=== PATIENT | female | born 2000 | race Caucasian/White ===

== ENCOUNTER → 2020-04-28 07:50 | Outpatient (BNVA) | payer BC, SELFPAY | PROVIDERS: Family Provider Family Medicine; Visit Provider Nurse Practitioner | DX: F33.2 Major depressive disorder, recurrent severe without psychotic features (principal); F41.1 Generalized anxiety disorder; F43.12 Post-traumatic stress disorder, chronic | CPT/HCPCS: 99214 ==

== ENCOUNTER → 2020-07-05 09:06 | Outpatient (BNVA) | payer BC, SELFPAY | PROVIDERS: Family Provider Family Medicine; Visit Provider Nurse Practitioner | DX: F41.1 Generalized anxiety disorder (principal); F33.2 Major depressive disorder, recurrent severe without psychotic features | CPT/HCPCS: 99213 ==

== ENCOUNTER 2021-09-16 15:58 | Inpatient (IN) | payer SELFPAY ==
[2021-09-16 16:10] VITALS: BP 97/63; PULSE 101; RESP 17; TEMP 36.3; O2SAT 100; BMI 22.1
--- NOTE | 2021-09-16 16:34 | ECG_ITS ---
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 Measurements Intervals [place] Rate: 101 P: 62 FL: 145 QRS: 43 QRSD: 100 T: 49 QT: 353 QTc: 458 Interpretive Statements SINUS TACHYCARDIA INCOMPLETE RIGHT BUNDLE BRANCH BLOCK Compared to ECG 12/23/2018 03:19:36 Sinus rhythm no longer present Sinus arrhythmia no longer present Electronically Signed On 09-17-2021 13:14:09 [employer] by Viktoriya Garzon M.D. [email or web address] Entertainmentholmes county joel pomerene memorial [id number]
--- NOTE | 2021-09-16 16:45 | ED_ITS ---
Documented by User: Eddie Tarango MD 09/16/21 18:01 HPI - Overdose General: Chief Complaint: Overdose Stated Complaint: OVERDOSE Time Seen by Provider: 09/16/21 16:36 History of Present Illness: HPI Narrative: 21-year-old female presents due to suicidal ideation. States that she was feeling sad and depressed about multiple factors including the recent passing of her family member. States that she took 10 tablets of 100 mg of Seroquel and attempt to hurt herself. Denies any desire to hurt anyone else. This occurred approximately 2-1/2 hours ago. Otherwise denies any pain or other focal symptoms. Poison control contacted and indicated this time if lab work is unremarkable she may be admitted to psychiatry. Review of Systems Narrative: - CONSTITUTIONAL: Denies weight loss, fever and chills. - HEENT: Denies changes in vision and hearing. - RESPIRATORY: Denies SOB and cough. - CV: Denies palpitations and CP. - GI: Denies abdominal pain, nausea, vomiting and diarrhea. - : Denies dysuria and urinary frequency. - MSK: Denies myalgia and joint pain. - SKIN: Denies rash and pruritus. - NEUROLOGICAL: Denies headache, weakness, numbness and syncope. - PSYCHIATRIC: As above [facility] ED PFSH: Medical History (Updated 09/16/21 @ 18:57 by Shmuel Lancaster DO) Cannabis dependence, uncomplicated Generalized anxiety disorder Major depressive disorder, recurrent severe without psychotic features Physical Exam Narrative: EXAM NARRATIVE: - GENERAL: Alert and oriented x 3. No acute distress. Well-nourished. - EYES: EOMI. Anicteric. - HENT: Atraumatic, no C-spine tenderness. Moist mucous membranes. No scleral icterus. No cervical lymphadenopathy. - LUNGS: Clear to auscultation bilaterally. No accessory muscle use. Equal lung sounds bilaterally. No respiratory distress. - CARDIOVASCULAR: Regular rate and rhythm. No murmur. No JVD. - ABDOMEN: Soft, non-tender and non-distended. Negative CVA tenderness bilaterally, no rebound or guarding, negative Castillo sign. No palpable masses. - EXTREMITIES: No edema. Non-tender. - SKIN: No rashes or lesions. Warm. - NEUROLOGIC: No meningismus or focal neurological deficits. CN II-XII grossly intact. - PSYCHIATRIC: Suicidal Course Vital Signs: Vital signs: Vital Signs Temperature 97.4 F L 09/16/21 16:10 Pulse Rate 102 H 09/16/21 18:10 Respiratory Rate 20 H 09/16/21 18:10 Blood Pressure 111/74 09/16/21 18:10 Pulse Oximetry 98 09/16/21 18:10 MDM - Overdose MDM Narrative: Medical decision making narrative: 21-year-old female presents with suicidal ideation after intentional overdose of Seroquel. She is hemodynamically stable afebrile and nontoxic-appearing. Lab work so far unremarkable. No sign of other toxidrome. Patient signed out to Dr. Lancaster. Lab Data: Labs: Lab Results 09/16/21 09/16/21 09/16/21 16:25 16:25 16:58 WBC 7.5 10^3/uL 10^3/ uL (4.0-10.0) RBC 4.16 10^6/uL 10^6 /uL (4.1-5.3) Hgb 13.3 g/dL g/dL (11.5-15.3) Hct 39.0 % % (37.0-47.0) MCV 93.8 fl fl (81-99) MCH 32.0 pg pg (28.0-34.0) MCHC 34.1 g/dL g/dL (30.0-36.0) RDW 12.4 % % (12.1-15.1) Plt Count 233 10^3/cmm 10^3 /cmm (130-400) MPV 10.1 fL fL (7.4-10.4) Neut % (Auto) 76.3 % % Lymph % (Auto) 16.6 % % Steele % (Auto) 5.7 % % Eos % (Auto) 0.8 % % Baso % (Auto) 0.5 % % Neut # (Auto) 5.73 10^3/uL 10^3 /uL (1.8-7.7) Lymph # (Auto) 1.3 10^3/uL 10^3/ uL (0.8-4.8) Steele # (Auto) 0.4 10^3/uL 10^3/ uL (0.2-0.9) Eos # (Auto) 0.1 10^3/uL 10^3/ uL (0.0-0.8) Baso # (Auto) 0.0 10^3/uL 10^3/ uL (0.0-0.1) Nucleated RBC % (a uto) 0 % % Nucleated RBCs # 0.0 /100WBC /100W BC Sodium 139 mmol/L mmol/L (136-145) Potassium 3.9 mmol/L mmol/L (3.5-5.1) Chloride 104 mmol/L mmol/L (98-107) Carbon Dioxide 22 mmol/L mmol/L (22-29) Anion Gap 16.9 (5-19) BUN 7 mg/dL mg/dL (6-20) Creatinine 0.4 mg/dL L mg/dL (0.5-0.9) GFR Calculation 201.5 mL/min H mL /min (90-130) Glucose 97 mg/dL mg/dL (65-115) Calculated Osmolal ity 286 mOsm/kg mOsm/ kg (285-295) Calcium 8.8 mg/dL mg/dL (8.5-10.5) Magnesium 2.0 mg/dL mg/dL (1.7-2.3) Total Bilirubin 0.5 mg/dL mg/dL (0.15-1.2) AST 16 U/L U/L (0-32) ALT 11 U/L U/L (0-33) Alkaline Phosphata se 68 IU/L IU/L (35-105) Total Protein 6.5 g/dL L g/dL (6.6-8.7) Albumin 4.0 g/dL g/dL (3.5-5.2) Globulin 2.5 g/dL g/dL (1.3-4.6) TSH 1.77 uIU/mL uIU/m L (0.27-4.20) HCG, Qual Negative (Negative) Urine Color Urine Appearance Urine pH Ur Specific Gravit y Urine Protein Urine Glucose (UA) Urine Ketones Urine Blood Urine Nitrate Urine Bilirubin Urine Urobilinogen Ur Leukocyte Melany ase Salicylates < 0.3 mg/dL L mg/ dL (3-10) Urine Opiates Scre en Acetaminophen < 5.0 ug/mL L ug/ mL (10-30) Ur Barbiturates Sc reen Ur Phencyclidine S crn Ur Amphetamines Sc reen U Benzodiazepines Scrn Urine Cocaine Scre en U Marijuana (THC) Screen Ethyl Alcohol < 10 mg/dL mg/dL (0-10) 09/16/21 09/16/21 16:58 16:58 WBC RBC Hgb Hct MCV MCH MCHC RDW Plt Count MPV Neut % (Auto) Lymph % (Auto) Steele % (Auto) Eos % (Auto) Baso % (Auto) Neut # (Auto) Lymph # (Auto) Steele # (Auto) Eos # (Auto) Baso # (Auto) Nucleated RBC % (a uto) Nucleated RBCs # Sodium Potassium Chloride Carbon Dioxide Anion Gap BUN Creatinine GFR Calculation Glucose Calculated Osmolal ity Calcium Magnesium Total Bilirubin AST ALT Alkaline Phosphata se Total Protein Albumin Globulin TSH HCG, Qual Urine Color Yellow (Yellow) Urine Appearance Clear (CLEAR) Urine pH 7 (5-7) Ur Specific Gravit y 1.005 (1.005-1.030) Urine Protein Neg (Negative) Urine Glucose (UA) Norm (Normal) Urine Ketones Negative (Negative) Urine Blood Neg (Negative) Urine Nitrate Negative (Negative) Urine Bilirubin Neg (Negative) Urine Urobilinogen Norm mg/dL mg/dL (Negative) Ur Leukocyte Melany ase Negative (Negative) Salicylates Urine Opiates Scre en Negative ng/mL ng /mL (Negative) Acetaminophen Ur Barbiturates Sc reen Negative ng/mL ng /mL (Negative) Ur Phencyclidine S crn Negative ng/mL ng /mL (Negative) Ur Amphetamines Sc reen Negative ng/mL ng /mL (Negative) U Benzodiazepines Scrn Negative ng/mL ng /mL (Negative) Urine Cocaine Scre en Negative ng/mL ng /mL (Negative) U Marijuana (THC) Screen Positive ng/mL H ng/mL (Negative) Ethyl Alcohol Discharge Plan Discharge Patient Disposition: Admitted As Inpatient Clinical Impression: Drug overdose Qualifiers: Encounter type: initial encounter Injury intent: intentional self-harm Qualified Code(s): T50.902A - Poisoning by unspecified drugs, medicaments and biological substances, intentional self-harm, initial encounter Condition: Stable Coding Level of Care Code ED Signals Intelligence Analysis Manager for Chg Fwd Documented by User: Shmuel Lancaster DO 09/16/21 19:55 HPI - Overdose General: Chief Complaint: Overdose Stated Complaint: OVERDOSE Time Seen by Provider: 09/16/21 16:36 [facility] ED PFSH: Medical History (Updated 09/16/21 @ 18:57 by Shmuel Lancaster DO) Cannabis dependence, uncomplicated Generalized anxiety disorder Major depressive disorder, recurrent severe without psychotic features Course Consultations: Consultation #1: Ruddy Time: 18:56 Vital Signs: Vital signs: Vital Signs Temperature 97.4 F L 09/16/21 16:10 Pulse Rate 102 H 09/16/21 18:10 Respiratory Rate 20 H 09/16/21 18:10 Blood Pressure 111/74 09/16/21 18:10 Pulse Oximetry 98 09/16/21 18:10 MDM - Overdose MDM Narrative: Medical decision making narrative: 21-year-old female checked out to me by Dr. Mackenzie at shift change. This young lady to 1 g of Seroquel approximately 1 PM this afternoon. She is awake, alert, and talking. Her heart rate is 90. Blood pressure has 118/64. Her labs are normal. She does Pap positive for marijuana. Spoke with psychiatry, they are willing to take in the NPU. Lab Data: Labs: Lab Results 09/16/21 09/16/21 09/16/21 16:25 16:25 16:58 WBC 7.5 10^3/uL 10^3/ uL (4.0-10.0) RBC 4.16 10^6/uL 10^6 /uL (4.1-5.3) Hgb 13.3 g/dL g/dL (11.5-15.3) Hct 39.0 % % (37.0-47.0) MCV 93.8 fl fl (81-99) MCH 32.0 pg pg (28.0-34.0) MCHC 34.1 g/dL g/dL (30.0-36.0) RDW 12.4 % % (12.1-15.1) Plt Count 233 10^3/cmm 10^3 /cmm (130-400) MPV 10.1 fL fL (7.4-10.4) Neut % (Auto) 76.3 % % Lymph % (Auto) 16.6 % % Steele % (Auto) 5.7 % % Eos % (Auto) 0.8 % % Baso % (Auto) 0.5 % % Neut # (Auto) 5.73 10^3/uL 10^3 /uL (1.8-7.7) Lymph # (Auto) 1.3 10^3/uL 10^3/ uL (0.8-4.8) Steele # (Auto) 0.4 10^3/uL 10^3/ uL (0.2-0.9) Eos # (Auto) 0.1 10^3/uL 10^3/ uL (0.0-0.8) Baso # (Auto) 0.0 10^3/uL 10^3/ uL (0.0-0.1) Nucleated RBC % (a uto) 0 % % Nucleated RBCs # 0.0 /100WBC /100W BC Sodium 139 mmol/L mmol/L (136-145) Potassium 3.9 mmol/L mmol/L (3.5-5.1) Chloride 104 mmol/L mmol/L (98-107) Carbon Dioxide 22 mmol/L mmol/L (22-29) Anion Gap 16.9 (5-19) BUN 7 mg/dL mg/dL (6-20) Creatinine 0.4 mg/dL L mg/dL (0.5-0.9) GFR Calculation 201.5 mL/min H mL /min (90-130) Glucose 97 mg/dL mg/dL (65-115) Calculated Osmolal ity 286 mOsm/kg mOsm/ kg (285-295) Calcium 8.8 mg/dL mg/dL (8.5-10.5) Magnesium 2.0 mg/dL mg/dL (1.7-2.3) Total Bilirubin 0.5 mg/dL mg/dL (0.15-1.2) AST 16 U/L U/L (0-32) ALT 11 U/L U/L (0-33) Alkaline Phosphata se 68 IU/L IU/L (35-105) Total Protein 6.5 g/dL L g/dL (6.6-8.7) Albumin 4.0 g/dL g/dL (3.5-5.2) Globulin 2.5 g/dL g/dL (1.3-4.6) TSH 1.77 uIU/mL uIU/m L (0.27-4.20) HCG, Qual Negative (Negative) Urine Color Urine Appearance Urine pH Ur Specific Gravit y Urine Protein Urine Glucose (UA) Urine Ketones Urine Blood Urine Nitrate Urine Bilirubin Urine Urobilinogen Ur Leukocyte Melany ase Salicylates < 0.3 mg/dL L mg/ dL (3-10) Urine Opiates Scre en Acetaminophen < 5.0 ug/mL L ug/ mL (10-30) Ur Barbiturates Sc reen Ur Phencyclidine S crn Ur Amphetamines Sc reen U Benzodiazepines Scrn Urine Cocaine Scre en U Marijuana (THC) Screen Ethyl Alcohol < 10 mg/dL mg/dL (0-10) 09/16/21 09/16/21 16:58 16:58 WBC RBC Hgb Hct MCV MCH MCHC RDW Plt Count MPV Neut % (Auto) Lymph % (Auto) Steele % (Auto) Eos % (Auto) Baso % (Auto) Neut # (Auto) Lymph # (Auto) Steele # (Auto) Eos # (Auto) Baso # (Auto) Nucleated RBC % (a uto) Nucleated RBCs # Sodium Potassium Chloride Carbon Dioxide Anion Gap BUN Creatinine GFR Calculation Glucose Calculated Osmolal ity Calcium Magnesium Total Bilirubin AST ALT Alkaline Phosphata se Total Protein Albumin Globulin TSH HCG, Qual Urine Color Yellow (Yellow) Urine Appearance Clear (CLEAR) Urine pH 7 (5-7) Ur Specific Gravit y 1.005 (1.005-1.030) Urine Protein Neg (Negative) Urine Glucose (UA) Norm (Normal) Urine Ketones Negative (Negative) Urine Blood Neg (Negative) Urine Nitrate Negative (Negative) Urine Bilirubin Neg (Negative) Urine Urobilinogen Norm mg/dL mg/dL (Negative) Ur Leukocyte Melany ase Negative (Negative) Salicylates Urine Opiates Scre en Negative ng/mL ng /mL (Negative) Acetaminophen Ur Barbiturates Sc reen Negative ng/mL ng /mL (Negative) Ur Phencyclidine S crn Negative ng/mL ng /mL (Negative) Ur Amphetamines Sc reen Negative ng/mL ng /mL (Negative) U Benzodiazepines Scrn Negative ng/mL ng /mL (Negative) Urine Cocaine Scre en Negative ng/mL ng /mL (Negative) U Marijuana (THC) Screen Positive ng/mL H ng/mL (Negative) Ethyl Alcohol Discharge Plan Discharge Patient Disposition: Admitted As Inpatient Clinical Impression: Drug overdose Qualifiers: Encounter type: initial encounter Injury intent: intentional self-harm Qualified Code(s): T50.902A - Poisoning by unspecified drugs, medicaments and biological substances, intentional self-harm, initial encounter Condition: Stable Coding Level of Care Code ED Signals Intelligence Analysis Manager for Chava Li
[2021-09-16 17:06] LABS: Basophils % 0.5 %; Eosinophils # 0.1 10^3/uL (0.0-0.8); Eosinophils % 0.8 %; Hemoglobin 13.3 g/dL (11.5-15.3); Lymphocytes # 1.3 10^3/uL (0.8-4.8); Lymphocytes % 16.6 %; Mean Corpuscular HGB Conc 34.1 g/dL (30.0-36.0); Mean Corpuscular Volume 93.8 fl (81-99); Mean Platelet Volume 10.1 fL (7.4-10.4); Monocytes # 0.4 10^3/uL (0.2-0.9); Monocytes % 5.7 %; Neutrophils # 5.73 10^3/uL (1.8-7.7); Neutrophils % 76.3 %; Nucleated Red Blood Cells % 0 %; Platelet Count 233 10^3/cmm (130-400); Red Blood Count 4.16 10^6/uL (4.1-5.3); Red Cell Distribution Width 12.4 % (12.1-15.1); White Blood Count 7.5 10^3/uL (4.0-10.0)
[2021-09-16 17:25] LABS: Alanine Aminotransferase 11 U/L (0-33); Alkaline Phosphatase 68 IU/L (35-105); Blood Urea Nitrogen 7 mg/dL (6-20); Calcium 8.8 mg/dL (8.5-10.5); Carbon Dioxide 22 mmol/L (22-29); Chloride 104 mmol/L (98-107); Globulin 2.5 g/dL (1.3-4.6); Glomerular Filtration Rate 201.5 mL/min (90-130); Glucose 97 mg/dL (65-115); Osmolality Calculated 286 mOsm/kg (285-295); Sodium 139 mmol/L (136-145); Thyroid Stimulating Hormone 1.77 uIU/mL (0.27-4.20); Total Bilirubin 0.5 mg/dL (0.15-1.2); Total Protein 6.5 g/dL (6.6-8.7)
[2021-09-16 17:32] LABS: Acetaminophen < 5.0 ug/mL (10-30); Alcohol Level < 10 mg/dL (0-10); Salicylate < 0.3 mg/dL (3-10)
[2021-09-16 17:34] LABS: Anion Gap 16.9 (5-19); Aspartate Amino Transferase 16 U/L (0-32); Potassium 3.9 mmol/L (3.5-5.1)
--- NOTE | 2021-09-16 17:49 | PC.NURSE ---
at bedside assumed care of pt.
--- NOTE | 2021-09-16 17:51 | PC.NURSE ---
pt set up in bed hr increased to 141bpm in a sinus rhythym and bp at 83/[address] lambert he verbalized understanding vo for 1 l of ns bolus.
[2021-09-16] MEDS: sodium chloride 0.9% 1,000 ML 999 ML IV (17:59)
--- NOTE | 2021-09-16 18:00 | PC.NURSE ---
pt is on continuous spo2, nibp, and cm.
[2021-09-16 18:10] VITALS: BP 111/74; PULSE 102; RESP 20; O2SAT 98
[2021-09-16 18:31] LABS: HCG Qualitative Urine. Negative (Negative)
[2021-09-16 18:34] LABS: Add Urine Microscopic? NO; Charge for UA Resulting for Rev
[2021-09-16 18:36] LABS: Bilirubin Urine Neg (Negative); Blood Urine Neg (Negative); Glucose Urine UA Norm (Normal); Ketones Urine Negative (Negative); Leukocyte Esterase Urine Negative (Negative); Nitrate Urine Negative (Negative); Protein Urine Neg (Negative); Specific Gravity, Urine 1.005 (1.005-1.030); Urine Appearance Clear (CLEAR); Urine Color Yellow (Yellow); Urobilinogen Urine Norm (Negative); pH Urine 7 (5-7)
[2021-09-16 18:39] LABS: Amphetamines Screen Urine Negative (Negative); Barbiturates Screen Urine Negative (Negative); Benzodiazepines Screen Urine Negative (Negative); Cocaine Screen Urine Negative (Negative); Opiate Screen Urine Negative (Negative); PCP Screen Urine Negative (Negative); THC Screen Urine Positive (Negative)
--- NOTE | 2021-09-16 19:00 | PC.NURSE ---
report given to kay burr assumed care.
[2021-09-16] MEDS: sodium chloride 0.9% 500 ML 999 ML IV (21:12)
[2021-09-16 21:43] VITALS: BP 112/78; PULSE 68; RESP 14; O2SAT 96
[2021-09-16 22:06] VITALS: BP 99/50; PULSE 110; RESP 20; TEMP 37.2; O2SAT 99
--- NOTE | 2021-09-17 00:54 | PC.NURSE ---
Admission 21-year-old female presents due to suicidal ideation. States that she was feeling sad and depressed about multiple factors including the recent passing of her family member. States that she took 10 tablets of 100 mg of Seroquel and attempt to hurt herself. Denies any desire to hurt anyone else. This occurred approximately 2-1/2 hours ago. Otherwise denies any pain or other focal symptoms. Upon arrival to NPU denies that this was a SA. States that she just wanted to sleep. Endorses increased depression since mother committed suicide 11 months ago. Has outpatient services at [facility] but states she has not been going recently but does still take her medications. Patient completed intake and went to bed. Has been resting with eyes closed with no signs of distress noted.
[2021-09-17 06:00] VITALS: BP 92/58; PULSE 83; RESP 14; TEMP 36.8; O2SAT 98; BMI 21.9
[2021-09-17] MEDS: duloxetine 60 mg Capsule 120 MG PO (09:02)
[2021-09-17] MEDS: nicotine 21 mg Patch 1 PATCH TRANSDERMA (12:19)
[2021-09-17] MEDS: nicotine 2 mg Gum BUCCAL ×4 (13:07→20:33)
--- NOTE | 2021-09-17 13:24 | PC.NURSE ---
PER GERMÁN FROM DR. DE LA VEGA PATIENT IS ALLOWED TO HAVE A GABRIEL PATCH AND GABRIEL GUM.
[2021-09-17 14:00] VITALS: BP 112/80; PULSE 91; RESP 16; TEMP 36.6; O2SAT 99
[2021-09-17] MEDS: hyDROXYzine 25 mg Capsule 50 MG PO ×2 (14:39→20:29)
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
[2021-09-17] MEDS: OLANZapine 5 mg ODT PO (17:34)
[2021-09-17 20:01] VITALS: BP 92/60; PULSE 137; RESP 15; TEMP 37.1; O2SAT 100
[2021-09-18 06:00] VITALS: BP 116/75; PULSE 66; RESP 15; TEMP 36.6; O2SAT 100
[2021-09-18] MEDS: nicotine 2 mg Gum BUCCAL ×3 (09:07→17:32)
[2021-09-18] MEDS: ARIPiprazole 10 mg Tablet 5 MG PO (09:07)
[2021-09-18] MEDS: duloxetine 60 mg Capsule 120 MG PO (09:08)
[2021-09-18] MEDS: hyDROXYzine 25 mg Capsule 50 MG PO ×2 (10:15→16:52)
--- NOTE | 2021-09-18 10:16 | PC.NURSE ---
Addendum entered by Rosario Bacon LPN 09/18/21 11:45: prn med effective no further c/o anxiety currently Original Note: PRN VISTARIL 50 MG GIVEN PO PER PT C/O STATED ANXIETY. PT SAID I'VE BEEN FEELING THIS WAY SINCE LAST NIGHT WILL CONT TO MONITOR
[2021-09-18] MEDS: nicotine 21 mg Patch 1 PATCH TRANSDERMA (10:35)
--- NOTE | 2021-09-18 11:56 | PC.NURSE ---
called [facility] pharmacy in [place], [place] to clarify home med Effexor, they said pt hasn't picked up since February 2021, last script was for Effexor 150 mg daily & 75 mg daily, only for 30 day supply. They did check to see if meds were transferred elsewhere, they said no meds had been transferred.
--- NOTE | 2021-09-18 12:26 | NPU.GN ---
[facility] Topic:Emotions General Mood of Group: Patient refused group, unknown reason.
[2021-09-18 14:00] VITALS: BP 116/75; PULSE 66; RESP 15; TEMP 36.6; O2SAT 100
--- NOTE | 2021-09-18 14:10 | P.NPUPN_ITS ---
Subjective NPU Subjective: Interval history: Patient presents today reporting that she really feels anxious and afraid about her ability to maintain her sobriety. She reports that a lot of her depression and even suicidal thoughts are surrounding how hard it is for her to maintain her sobriety from opiates. She reports that she almost cannot remember the 2 years that she was actively in her addiction and that her last use was 2 weeks ago but she feels like she spends every day biting her nails trying to avoid a relapse. We discussed Suboxone and agonist therapies and she reports that her current economics without Medicaid makes that and possible option. She reports she has been going to [facility] but she has not been sharing that this is a primary challenge in her life. We got clarity that she is on the Cymbalta and not the Effexor as she had been thinking and she is currently tolerating the Abilify. She reports that she feels alone in the struggle. Mental Status Exam MSE Comments: This is a well-nourished, well-developed, white female, with purple hair in hospital scrubs, with adequate grooming and eye contact. No abnormal movements, except for psychomotor retardation. Cooperative with exam in moderate distress. Speech was normal rate and volume. Mood described as depressed and anxious and afraid; affect congruent and tearful. Thought process, organized. Thought content: patient denied any suicidal or homicidal ideation, there were no delusions reported or noted, patient denied any auditory or visual hallucinations. Attention, concentration, and memory appear intact but none were formally tested. He is alert and oriented times three. Insight and judgment appear fair. Impulse control is limited. Vitals/I&O/Wt Last Vital Signs Temp 97.9 F 09/18/21 06:00 Pulse 66 09/18/21 06:00 Resp 15 09/18/21 06:00 BP 116/75 09/18/21 06:00 Pulse Ox 100 09/18/21 06:00 Weight last 48 hrs Weight 54.431 kg Weight 56.699 kg Data NPU : 09/16/21 16:25 09/16/21 16:25 A&P Additional A&P Information (1) Drug overdose: (2) Cannabis dependence, uncomplicated: (3) Generalized anxiety disorder: (4) Major depressive disorder, recurrent severe without psychotic features: (5) Opioid dependence: (6) Bereavement: Additional A&P Information This is a 21-year-old, white female, with a long history of mental health and addiction issues, who presents with positive UDS for cannabis only, and endorsing significant depression with suicidality. 1. Continue current medication. 2. Encourage individual, group, and milieu therapy. 3. Continue q-15 minute checks for safety. 4. Recommend sober living treatment at the highest level of care to which the patient is willing to commit. 5. Explore getting connected with Medicaid or seeing if there are any funds available out there for her to get into a program for her addiction. Involuntary Hold Information 96 Hour Hold: 96 Hour Involuntary Admission: Yes 96 Hour Hold Ending Date: 09/22/21 96 Hour Hold Ending Time: 12:01 Attestations NPU Medical Necessity Statement*: Inpatient hospitalization is medically necessary and the clinically appropriate intervention, at this time. We will monitor medications and make changes as indicated.Likely length of stay is 2-4 days. Coding Level of Care Code Acute Condenser Cleaner for Chava Li
[2021-09-18] MEDS: BuSPIRONE 10 mg Tablet 15 MG PO ×2 (14:34→20:08)
[2021-09-18] MEDS: trazodone 50 mg Tablet PO (20:10)
[2021-09-18 20:17] VITALS: BP 110/72; PULSE 94; RESP 16; TEMP 36.9; O2SAT 96
[2021-09-19 06:00] VITALS: BP 95/49; PULSE 67; RESP 14; TEMP 37.1; O2SAT 99
--- NOTE | 2021-09-19 06:46 | PC.NURSE ---
Patient up at start of shift. Anxious at that time. Voiced concerns about if Buspar would be effective for her anxiety. Educated on starting doses and time to build. Patient accepting of this education. Has been in bed resting with eyes closed throughout most of night. No further complaints. Ni signs of distress noted.
[2021-09-19] MEDS: ARIPiprazole 10 mg Tablet 5 MG PO (08:40)
[2021-09-19] MEDS: duloxetine 60 mg Capsule 120 MG PO (08:40)
[2021-09-19] MEDS: BuSPIRONE 10 mg Tablet 15 MG PO ×2 (08:40→20:20)
[2021-09-19] MEDS: nicotine 2 mg Gum BUCCAL ×2 (09:27→18:05)
[2021-09-19] MEDS: hyDROXYzine 25 mg Capsule 50 MG PO (11:35)
[2021-09-19] MEDS: nicotine 21 mg Patch 1 PATCH TRANSDERMA (11:38)
[2021-09-19 14:00] VITALS: BP 117/77; PULSE 118; RESP 20; TEMP 36; O2SAT 98
[2021-09-19] MEDS: propranolol 20 mg Tablet PO ×2 (15:25→23:35)
--- NOTE | 2021-09-19 15:26 | PC.NURSE ---
Addendum entered by Rosario Bacon LPN 09/19/21 17:17: PRN MED EFFECTIVE NO FURTHER C/O ANXIETY CURRENTLY Original Note: PRN PROPRANOLOL 20 MG GIVEN PO PER PT C/O STATED ANXIETY
--- NOTE | 2021-09-19 19:06 | P.NPUPN_ITS ---
Subjective NPU Subjective: Interval history: Patient presents today reporting that she filled out the information for referral for [facility]. And we discussed the possible agonist therapy programs out there in [place] and she was more positive today about the fact that possibly she could play [id number] for those programs if her wellness depended on it. We discussed that some of those programs allow you to pay weekly. She is somewhat more optimistic about the chances of success in managing her addiction. We discussed a plan for discharge in in the next 48 hours. Mental Status Exam MSE Comments: This is a well-nourished, well-developed, white female, with purple hair in hospital scrubs, with adequate grooming and eye contact. No abnormal movements, except for mild psychomotor retardation. Cooperative with exam in mild distress. Speech was normal rate and volume. Mood described as a little better; affect congruent and less tearful. Thought process, organized. Thought content: patient denied any suicidal or homicidal ideation, there were no delusions reported or noted, patient denied any auditory or visual hallucinations. Attention, concentration, and memory appear intact but none were formally tested. He is alert and oriented times three. Insight and judgment appear fair. Impulse control is limited. Vitals/I&O/Wt Last Vital Signs Temp 96.8 F L 09/19/21 14:00 Pulse 118 H 09/19/21 14:00 Resp 20 H 09/19/21 14:00 BP 117/77 09/19/21 14:00 Pulse Ox 98 09/19/21 14:00 Data NPU : 09/16/21 16:25 09/16/21 16:25 A&P Additional A&P Information (1) Drug overdose: (2) Cannabis dependence, uncomplicated: (3) Generalized anxiety disorder: (4) Major depressive disorder, recurrent severe without psychotic features: (5) Opioid dependence: (6) Bereavement: Additional A&P Information This is a 21-year-old, white female, with a long history of mental health and addiction issues, who presents with positive UDS for cannabis only, and endorsing significant depression with suicidality. 1. Continue current medication. 2. Encourage individual, group, and milieu therapy. 3. Continue q-15 minute checks for safety. 4. Recommend sober living treatment at the highest level of care to which the patient is willing to commit. 5. Explore getting connected with Medicaid or seeing if there are any funds available out there for her to get into a program for her addiction. Involuntary Hold Information 96 Hour Hold: 96 Hour Involuntary Admission: Yes 96 Hour Hold Ending Date: 09/22/21 96 Hour Hold Ending Time: 12:01 Attestations NPU Medical Necessity Statement*: Inpatient hospitalization is medically necessary and the clinically appropriate intervention, at this time. We will monitor medications and make changes as indicated.Likely length of stay is 1-3 days. Coding Level of Care Code Acute Call Worker Person for Chava Li
[2021-09-19] MEDS: trazodone 50 mg Tablet PO (20:20)
[2021-09-19 20:55] VITALS: BP 110/73; PULSE 93; RESP 15; TEMP 36.8; O2SAT 97
[2021-09-20] MEDS: acetaminophen 325 mg Tablet 650 MG PO (00:53)
[2021-09-20 06:00] VITALS: BP 89/66; PULSE 85; RESP 17; TEMP 36.6; O2SAT 95
[2021-09-20] MEDS: nicotine 2 mg Gum BUCCAL (07:57)
[2021-09-20] MEDS: BuSPIRONE 10 mg Tablet 15 MG PO (09:32)
[2021-09-20] MEDS: duloxetine 60 mg Capsule 120 MG PO (09:32)
[2021-09-20] MEDS: ARIPiprazole 10 mg Tablet 5 MG PO (09:33)
[2021-09-20] MEDS: propranolol 20 mg Tablet PO (09:36)
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
[2021-09-20 11:55] VITALS: BP 89/66; PULSE 85; RESP 17; TEMP 36.6; O2SAT 95
[2021-09-20] MEDS: ondansetron 4 MG Tablet PO (12:12)
--- NOTE | 2021-09-20 13:09 | NPU.GN ---
[facility] Group Topic: Coping Checkers General Mood of Group: Latasha attended and participated in group. She was talkative and seemed in a good mood. She was interested in [facility] services with [facility] for ITCD and CSS. She currently uses and has lost her person of support her grandmother that was like her mother to her. Since her grandmas passing she has no one for social support. This group underwriter aided client to complete the intake forms for services.
[2021-09-20 13:52] VITALS: BP 102/70; PULSE 88; RESP 16; TEMP 36.8; O2SAT 95
== END 2021-09-20 15:06 | disposition home or self-care (01) | DRG 918 ==
LOC: ER 19:15 → NP 22:05
PROVIDERS: Emergency Medicine; Admitting Provider Psychiatry & Neurology Psychiatry; Emergency Provider Emergency Medicine; Visit Provider Psychiatry & Neurology Psychiatry
DX: T43.592A Poisoning by other antipsychotics and neuroleptics, intentional self-harm, initial encounter (principal); F33.2 Major depressive disorder, recurrent severe without psychotic features; R45.851 Suicidal ideations; F11.20 Opioid dependence, uncomplicated; Z63.4 Disappearance and death of family member; F12.20 Cannabis dependence, uncomplicated; F41.1 Generalized anxiety disorder
CPT/HCPCS: 80053; 80306; 80307; 81003; 81025; 83735; 84443; 85025; 93005; 96360; 97150; 97165; 99285; J7030; J7040; Q0162

== ENCOUNTER 2022-02-19 09:07 | Emergency (ER) | payer SELFPAY ==
[2022-02-19 09:16] VITALS: BP 121/72; PULSE 107; RESP 18; TEMP 37.1; O2SAT 100; BMI 21.9
--- NOTE | 2022-02-19 09:21 | US_ITS ---
WS: [id number] EARLY OBSTETRICAL ULTRASOUND (<14 WEEKS). HISTORY: bleeding COMPARISON: None available. Single intrauterine gestational sac is identified. Cardiac activity at 167 BPM. [place]-rump length levi sures 3.4 cm which corresponds to a gestation of 10w2d. Normal-appearing yolk sac and amnion demonstr ated. No subchorionic hemorrhage. Small amount of free fluid in the cul-de-sac. Both ovaries are identified and normal. Normal vascularity. No adjacent adnexal mass. The cervix is closed and well visualized. US/US OB <= 14 weeks fetus [id number] IMPRESSION: 1. Single intrauterine gestation of 10 weeks 2 days with an EDC of 09/15/2022. 2. Normal cervix with no cervical insufficiency. 3. Small amount of free fluid in the pelvis.
--- NOTE | 2022-02-19 09:25 | ED_ITS ---
Documented by User: ANDREW Solis 02/19/22 11:32 HPI - General: Chief complaint: Vaginal Bleeding Stated complaint: 8 weeks preg/severe abdominal pain/vaginal bleed Time Seen by Provider: 02/19/22 09:09 History of Present Illness: Patient presents with abdominal cramping and vaginal bleeding that started at 2100 hrs. last night. Patient said she was fine up to that time and then the cramping started then she started having bleeding. Now the bleeding has become very light but she still has some cramping. This is her first . Date of Last Menstrual Period: 09/12/21 Associated symptoms: Deny abdominal pain, headache(s), nausea, vaginal discharge or vomiting Review of Systems Const: Denies: fever(s), chills or body aches Eyes: Denies: eye discomfort ENMT: Denies: throat pain Card: Denies: chest pain Resp: Denies: dyspnea GI: Denies: abdominal pain, nausea or vomiting : Reports: vaginal bleeding and other (Cramping started 2100 last night); Denies: urinary urgency or vaginal discharge Skin/Breast: Denies: rash Neuro: Denies: headache(s) Psych: Denies: depression or suicidal ideation [facility] ED PFSH: Medical History (Updated 02/19/22 @ 10:58 by ANDREW Solis) Cannabis dependence, uncomplicated Generalized anxiety disorder Major depressive disorder, recurrent severe without psychotic features Psychiatric care Female Reproductive History: Date of last menstrual period: 09/12/21 Physical Exam 2 Const: COMMON NORMALS: no acute distress, patient oriented x3 and alert HENMT: COMMON NORMALS: normocephalic and external ears normal HEAD & SCALP: normocephalic EXTERNAL EAR: Yes external ears normal Eye: COMMON NORMALS: EOMs intact bilaterally Neck/C-Spine: COMMON NORMALS: no JVD Resp: COMMON NORMALS: normal respiratory effort and No use of accessory muscles Cardio: COMMON NORMALS: no JVD GI: INSPECTION: Yes normal to inspection Extremity: COMMON NORMALS: normal to inspection and full ROM Neuro: COMMON NORMALS: patient oriented x3 SENSORIUM/ORIENTATION: Yes alert Psych: COMMON NORMALS: mental status grossly normal Skin: COMMON NORMALS: no rashes or lesions noted GENERAL SKIN EXAM: no rash es or lesions noted Course Vital Signs: Vital signs: Vital Signs Temperature 98.7 F 04/18/22 09:16 Pulse Rate 107 H 02/19/22 09:16 Respiratory Rate 18 02/19/22 09:16 Blood Pressure 121/72 02/19/22 09:16 Pulse Oximetry 100 02/19/22 09:16 MDM - OB/Uterine Contractions Medical Decision Making Patient presents with at 8 to 10 weeks of . She had some cramping and vaginal bleeding last night which is improved this morning. Patient is feeling much better and may be having some light spotting she states. Denies any vaginal discharge. Has appointment OB this Saturday. Laboratory studies were done and ultrasound was obtained that shows a viable at 10 weeks. Laboratory studies were negative for any concerning finding. Patient follow up at OB appointment on Saturday. Lab Data : 02/19/22 09:32 02/19/22 09:32 Radiology Impressions Ultrasound 02/19/22 09:21 IMPRESSION: 1. Single intrauterine gestation of 10 weeks 2 days with an EDC of 09/15/2022. 2. Normal cervix with no cervical insufficiency. 3. Small amount of free fluid in the pelvis. Laboratory Results WBC 6.4 10^3/uL (4.0-10.0) 02/19/22 09:32 RBC 4.33 10^6/uL (4.1-5.3) 02/19/22 09:32 Hgb 13.4 g/dL (11.5-15.3) 02/19/22 09:32 Hct 39.4 % (37.0-47.0) 02/19/22 09:32 MCV 91.0 fl (81-99) 02/19/22 09:32 MCH 30.9 pg (28.0-34.0) 02/19/22 09:32 MCHC 34.0 g/dL (30.0-36.0) 02/19/22 09:32 RDW 12.4 % (12.1-15.1) 02/19/22 09:32 Plt Count 257 10^3/cmm (130-400) 02/19/22 09:32 MPV 9.1 fL (7.4-10.4) 02/19/22 09:32 Neut % (Auto) 68.1 % 02/19/22 09:32 Lymph % (Auto) 21.5 % 02/19/22 09:32 [place] % (Auto) 7.0 % 02/19/22 09:32 Eos % (Auto) 2.5 % 02/19/22 09:32 Baso % (Auto) 0.6 % 02/19/22 09:32 Neut # (Auto) 4.37 10^3/uL (1.8-7.7) 02/19/22 09:32 Lymph # (Auto) 1.4 10^3/uL (0.8-4.8) 02/19/22 09:32 [place] # (Auto) 0.5 10^3/uL (0.2-0.9) 02/19/22 09:32 Eos # (Auto) 0.2 10^3/uL (0.0-0.8) 02/19/22 09:32 Baso # (Auto) 0.0 10^3/uL (0.0-0.1) 02/19/22 09:32 Nucleated RBC % (auto) 0 % 02/19/22 09:32 Nucleated RBCs # 0.0 /100WBC 02/19/22 09:32 Sodium 136 mmol/L (136-145) 02/19/22 09:32 Potassium 3.4 mmol/L (3.5-5.1) L 02/19/22 09:32 Chloride 101 mmol/L (98-107) 02/19/22 09:32 Carbon Dioxide 22 mmol/L (22-29) 02/19/22 09:32 Anion Gap 16.4 (5-19) 02/19/22 09:32 BUN 4 mg/dL (6-20) L 02/19/22 09:32 Creatinine 0.4 mg/dL (0.5-0.9) L 02/19/22 09:32 GFR Calculation 201.5 mL/min (90-130) H 02/19/22 09:32 Glucose 85 mg/dL (65-115) 02/19/22 09:32 Calculated Osmolality 278 mOsm/kg (285-295) L 02/19/22 09:32 Calcium 8.5 mg/dL (8.5-10.5) 02/19/22 09:32 Ser , Semi-Qnt 72580.00 mIU/mL 02/19/22 09:32 Urine Color Yellow (Yellow) 02/19/22 09:40 Urine Appearance Hazy (CLEAR) A 02/19/22 09:40 Urine pH 7 (5-7) 02/19/22 09:40 Ur Specific [place] 1.010 (1.005-1.030) 02/19/22 09:40 Urine Protein Neg (Negative) 02/19/22 09:40 Urine Glucose (UA) Norm (Normal) 02/19/22 09:40 Urine Ketones Negative (Negative) 02/19/22 09:40 Urine Blood Neg (Negative) 02/19/22 09:40 Urine Nitrate Negative (Negative) 02/19/22 09:40 Urine Bilirubin Neg (Negative) 02/19/22 09:40 Urine Urobilinogen Neg mg/dL (Negative) 02/19/22 09:40 Ur Leukocyte Esterase Negative (Negative) 02/19/22 09:40 Urine RBC Rare /hpf (0-2) 02/19/22 09:40 Urine WBC Rare /hpf (0-5) 02/19/22 09:40 Ur Squamous Epith Cells 5-10 /hpf (0-5) H 02/19/22 09:40 Amorphous Sediment Not Reportable 02/19/22 09:40 Urine Bacteria 1+ /hpf (NONE) H 02/19/22 09:40 Blood Type AB Positive 02/19/22 09:32 Rho(D) Type Positive 02/19/22 09:32 Discharge Plan Discharge Patient Disposition: Home Clinical Impression: Threatened Condition: Stable Prescriptions: No Action propranolol 20 mg tablet 20 mg PO TID PRN (Reason: Anxiety) 30 Days Qty: 90 1RF Tylenol Ex Str Rapid Release 500 mg Tablet 1,000 mg PO Q4H PRN (Reason: Pain) 0RF buspirone 10 mg tablet 15 mg PO TID PRN (Reason: Anxiety) 0RF Abilify 5 mg tablet 5 mg PO DAILY PRN (Reason: unknown) 0RF Cymbalta 60 mg capsule,delayed release(DR/EC) 120 mg PO DAILY PRN (Reason: unknown) 0RF Discharge Orders: Discharge ED (Routine); Ordered 02/19/22 Ordered By: Rinku Benson Discharge Diet: Usual diet Discharge Activity: Increase activity as tolerated Patient Instructions: Threatened Miscarriage (ED) Activity Restrictions/Additional Instructions: Keep your appointment with your OB as scheduled on Saturday. Drink plenty of water. Rest as needed. Return here if any worsening of symptoms. Coding Level of Care Code ED Air Deodorizer Servicer for Chg Fwd Exam Comprehensive Documented by User: Ibrahima Tucker DO 02/19/22 13:38 HPI - General: Chief complaint: Vaginal Bleeding Stated complaint: 8 weeks preg/severe abdominal pain/vaginal bleed Time Seen by Provider: 02/19/22 09:09 [facility] ED PFSH: Medical History (Updated 02/19/22 @ 10:58 by NADREW Solis) Cannabis dependence, uncomplicated Generalized anxiety disorder Major depressive disorder, recurrent severe without psychotic features Psychiatric care Course Vital Signs: Vital signs: Vital Signs Temperature 98.7 F 02/19/22 09:16 Pulse Rate 107 H 02/19/22 09:16 Respiratory Rate 18 02/19/22 09:16 Blood Pressure 121/72 02/19/22 09:16 Pulse Oximetry 100 02/19/22 09:16 MDM - OB/Uterine Contractions Medical Decision Making Patient presents with at 8 to 10 weeks of . She had some cramping and vaginal bleeding last night which is improved this morning. Patient is feeling much better and may be having some light spotting she states. Denies any vaginal discharge. Has appointment OB this Saturday. Laboratory studies were done and ultrasound was obtained that shows a viable at 10 weeks. Laboratory studies were negative for any concerning finding. Patient follow up at OB appointment on Saturday. Chart reviewed and patient discussed with midlevel. Agree with assessment and plan. Lab Data : 02/19/22 09:32 02/19/22 09:32 Radiology Impressions Ultrasound 02/19/22 09:21 IMPRESSION: 1. Single intrauterine gestation of 10 weeks 2 days with an EDC of 09/15/2022. 2. Normal cervix with no cervical insufficiency. 3. Small amount of free fluid in the pelvis. Laboratory Results WBC 6.4 10^3/uL (4.0-10.0) 02/19/22 09:32 RBC 4.33 10^6/uL (4.1-5.3) 02/19/22 09:32 Hgb 13.4 g/dL (11.5-15.3) 02/19/22 09:32 Hct 39.4 % (37.0-47.0) 02/19/22:32 MCV 91.0 fl (81-99) 02/19/22: MCH 30.9 pg (28.0-34.0) 02/19/22 09: MCHC 34.0 g/dL (30.0-36.0) 02/19/22 09: RDW 12.4 % (12.1-15.1) 02/19/22 09:32 Plt Count 257 10^3/cmm (130-400) 02/19/22 09:32 MPV 9.1 fL (7.4-10.4) 02/19/22 09:32 Neut % (Auto) 68.1 % 02/19/22 09:32 Lymph % (Auto) 21.5 % 02/19/22 09:32 [place] % (Auto) 7.0 % 02/19/22 09:32 Eos % (Auto) 2.5 % 02/19/22:32 Baso % (Auto) 0.6 % 02/19/22:32 Neut # (Auto) 4.37 10^3/uL (1.8-7.7) 02/19/22 09:32 Lymph # (Auto) 1.4 10^3/uL (0.8-4.8) 02/19/22 09:32 [place] # (Auto) 0.5 10^3/uL (0.2-0.9) 02/19/22 09:32 Eos # (Auto) 0.2 10^3/uL (0.0-0.8) 02/19/22 09:32 Baso # (Auto) 0.0 10^3/uL (0.0-0.1) 02/19/22 09:32 Nucleated RBC % (auto) 0 % 02/19/22:32 Nucleated RBCs # 0.0 /100WBC 02/19/22 09:32 Sodium 136 mmol/L (136-145) 02/19/22 09:32 Potassium 3.4 mmol/L (3.5-5.1) L 02/19/22 09:32 Chloride 101 mmol/L (98-107) 02/19/22 09:32 Carbon Dioxide 22 mmol/L (22-29) 02/19/22 09:32 Anion Gap 16.4 (5-19) 02/19/22 09:32 BUN 4 mg/dL (6-20) L 02/19/22 09:32 Creatinine 0.4 mg/dL (0.5-0.9) L 02/19/22 09:32 GFR Calculation 201.5 mL/min (90-130) H 02/19/22 09:32 Glucose 85 mg/dL (65-115) 02/19/22 09:32 Calculated Osmolality 278 mOsm/kg (285-295) L 02/19/22 09:32 Calcium 8.5 mg/dL (8.5-10.5) 02/19/22 09:32 Ser , Semi-Qnt 74608.00 mIU/mL 02/19/22 09:32 Urine Color Yellow (Yellow) 02/19/22 09:40 Urine Appearance Hazy (CLEAR) A 02/19/22 09:40 Urine pH 7 (5-7) 02/19/22 09:40 Ur Specific [place] 1.010 (1.005-1.030) 02/19/22 09:40 Urine Protein Neg (Negative) 02/19/22 09:40 Urine Glucose (UA) Norm (Normal) 02/19/22 09:40 Urine Ketones Negative (Negative) 02/19/22 09:40 Urine Blood Neg (Negative) 02/19/22 09:40 Urine Nitrate Negative (Negative) 02/19/22 09:40 Urine Bilirubin Neg (Negative) 02/19/22 09:40 Urine Urobilinogen Neg mg/dL (Negative) 02/19/22 09:40 Ur Leukocyte Esterase Negative (Negative) 02/19/22 09:40 Urine RBC Rare /hpf (0-2) 02/19/22 09:40 Urine WBC Rare /hpf (0-5) 02/19/22 09:40 Ur Squamous Epith Cells 5-10 /hpf (0-5) H 02/19/22 09:40 Amorphous Sediment Not Reportable 02/19/22 09:40 Urine Bacteria 1+ /hpf (NONE) H 02/19/22 09:40 Blood Type AB Positive 02/19/22 09:32 Rho(D) Type Positive 02/19/22 09:32 Discharge Plan Discharge Patient Disposition: Home Clinical Impression: Threatened Condition: Stable Prescriptions: No Action propranolol 20 mg tablet 20 mg PO TID PRN (Reason: Anxiety) 30 Days Qty: 90 1RF Tylenol Ex Str Rapid Release 500 mg Tablet 1,000 mg PO Q4H PRN (Reason: Pain) 0RF buspirone 10 mg tablet 15 mg PO TID PRN (Reason: Anxiety) 0RF Abilify 5 mg tablet 5 mg PO DAILY PRN (Reason: unknown) 0RF Cymbalta 60 mg capsule,delayed release(DR/EC) 120 mg PO DAILY PRN (Reason: unknown) 0RF Discharge Orders: Discharge ED (Routine); Ordered 02/19/22 Ordered By: Rinku Benson Discharge Diet: Usual diet Discharge Activity: Increase activity as tolerated Patient Instructions: Threatened Miscarriage (ED) Activity Restrictions/Additional Instructions: Keep your appointment with your OB as scheduled on Saturday. Drink plenty of w ater. Rest as needed. Return here if any worsening of symptoms. Coding Level of Care Code ED Air Deodorizer Servicer for Lug Fwd Exam Comprehensive
[2022-02-19 09:46] LABS: Basophils % 0.6 %; Eosinophils # 0.2 10^3/uL (0.0-0.8); Eosinophils % 2.5 %; Hematocrit 39.4 % (37.0-47.0); Hemoglobin 13.4 g/dL (11.5-15.3); Lymphocytes # 1.4 10^3/uL (0.8-4.8); Lymphocytes % 21.5 %; Mean Corpuscular Hemoglobin 30.9 pg (28.0-34.0); Mean Platelet Volume 9.1 fL (7.4-10.4); Monocytes # 0.5 10^3/uL (0.2-0.9); Neutrophils # 4.37 10^3/uL (1.8-7.7); Neutrophils % 68.1 %; Nucleated Red Blood Cells % 0 %; Platelet Count 257 10^3/cmm (130-400); Red Blood Count 4.33 10^6/uL (4.1-5.3); Red Cell Distribution Width 12.4 % (12.1-15.1); White Blood Count 6.4 10^3/uL (4.0-10.0)
[2022-02-19 10:18] LABS: Anion Gap 16.4 (5-19); Blood Urea Nitrogen 4 mg/dL (6-20); Calcium 8.5 mg/dL (8.5-10.5); Carbon Dioxide 22 mmol/L (22-29); Chloride 101 mmol/L (98-107); Glomerular Filtration Rate 201.5 mL/min (90-130); Glucose 85 mg/dL (65-115); Osmolality Calculated 278 mOsm/kg (285-295); Potassium 3.4 mmol/L (3.5-5.1); Sodium 136 mmol/L (136-145)
[2022-02-19 10:35] LABS: Bilirubin Urine Neg (Negative); Blood Urine Neg (Negative); Glucose Urine UA Norm (Normal); Ketones Urine Negative (Negative); Leukocyte Esterase Urine Negative (Negative); Nitrate Urine Negative (Negative); Protein Urine Neg (Negative); Urine Appearance Hazy (CLEAR); Urine Color Yellow (Yellow); Urobilinogen Urine Neg (Negative); pH Urine 7 (5-7)
[2022-02-19 10:36] LABS: Add Urine Culture? No; Add Urine Microscopic? YES; Bacteria Urine 1+ /hpf; RBC Urine RARE /hpf (0-2); WBC Urine RARE /hpf (0-5)
== END 2022-02-19 11:07 | disposition home or self-care (01) ==
PROVIDERS: Emergency Provider Nurse Practitioner Family
DX: O20.0 Threatened abortion (principal); Z3A.10 10 weeks gestation of pregnancy
CPT/HCPCS: 76801; 80048; 81001; 84702; 85025; 86900; 99282

== ENCOUNTER 2022-07-19 23:35 | Emergency (ER) | payer BC, MEDICAID, SELFPAY ==
[2022-07-19 23:36] VITALS: BP 97/66; PULSE 110; RESP 18; TEMP 36.8; O2SAT 99; BMI 23.8
--- NOTE | 2022-07-19 23:40 | ECG_ITS ---
[facility] Test Date: 2022-07-19 Pat Name: Latasha Johnson Department: Room: Gender: Female Co Founder And President: : 2000 Requested By: Ti Sanchez Order Number: [id number] Ángela MD: Camden Silverio M.D. Measurements Intervals [place] Rate: 112 P: 49 ME: 144 QRS: 25 QRSD: 100 T: 17 QT: 314 QTc: 429 Interpretive Statements SINUS TACHYCARDIA POSSIBLE LEFT ATRIAL ENLARGEMENT [-0.1mV P-WAVE IN V1/V2] INCOMPLETE RIGHT BUNDLE BRANCH BLOCK [90+ ms QRS DURATION, TERMINAL R IN V1/V2, 40+ ms S IN I/aVL/V4/V5/V6] ABNORMAL RHYTHM ECG Compared to ECG 09/16/2021 18:06:21 No significant changes Electronically Signed On 07-20-2022 0:19:15 CDT by Camden Silverio M.D. [id number]
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
[2022-07-20 00:01] VITALS: BP 97/66; PULSE 79; RESP 18; O2SAT 94
[2022-07-20 00:54] LABS: Lactic Sepsis W/Reflex 2.5 mmol/L (0.5-2.2)
[2022-07-20 01:27] LABS: Basophils % 0.3 %; Eosinophils # 0.1 10^3/uL (0.0-0.8); Eosinophils % 0.5 %; Hematocrit 34.5 % (37.0-47.0); Hemoglobin 11.8 g/dL (11.5-15.3); Lymphocytes # 2.5 10^3/uL (0.8-4.8); Lymphocytes % 24.6 %; Mean Corpuscular HGB Conc 34.2 g/dL (30.0-36.0); Mean Corpuscular Hemoglobin 31.1 pg (28.0-34.0); Monocytes # 0.7 10^3/uL (0.2-0.9); Monocytes % 6.6 %; Neutrophils # 6.72 10^3/uL (1.8-7.7); Neutrophils % 67.1 %; Nucleated Red Blood Cells % 0 %; Platelet Count 285 10^3/cmm (130-400); Positive C 1; Red Blood Count 3.79 10^6/uL (4.1-5.3); Red Cell Distribution Width 12.3 % (12.1-15.1)
[2022-07-20 01:28] LABS: Slide Review Slide Review Perform
[2022-07-20 01:53] LABS: Reflex Lactate Order REFLEX LACTIC ORDERD
[2022-07-20] MEDS: sodium chloride 0.9% 1,000 ML 999 ML IV (02:05)
[2022-07-20 02:25] VITALS: BP 102/62; PULSE 89; RESP 16; O2SAT 99
[2022-07-20 02:33] LABS: Alanine Aminotransferase 14 U/L (0-33); Albumin Level 3.5 g/dL (3.5-5.2); Alkaline Phosphatase 117 U/L (35-105); Anion Gap 14.6 (5-19); Aspartate Amino Transferase 18 U/L (0-32); Blood Urea Nitrogen 6 mg/dL (6-20); Calcium 8.4 mg/dL (8.5-10.5); Carbon Dioxide 24 mmol/L (22-29); Chloride 99 mmol/L (98-107); Creatinine Clr Calc Pharmacy 150.7326; Globulin 2.7 g/dL (1.3-4.6); Glomerular Filtration Rate 155.7 mL/min (90-130); Glucose 92 mg/dL (65-115); Osmolality Calculated 275 mOsm/kg (285-295); Potassium 3.6 mmol/L (3.5-5.1); Salicylate 0.6 mg/dL (3-10); Sodium 134 mmol/L (136-145); Total Bilirubin 0.3 mg/dL (0.15-1.2); Total Protein 6.2 g/dL (6.6-8.7)
[2022-07-20 02:37] LABS: Acetaminophen < 5.0 ug/mL (10-30); Alcohol Level < 10 mg/dL (0-10)
--- NOTE | 2022-07-20 03:00 | PC.NURSE ---
This nurse monitored FHTs during patient's stay in ER. Moderate variability with 15x15 accelerations and no decelerations noted during entire monitoring. Also no contractions were noted during entire monitoring. Printed strip will be sent to medical records for scanning.
[2022-07-20 03:13] VITALS: BP 121/76; PULSE 89; RESP 16; O2SAT 98
== END 2022-07-20 03:27 | disposition home or self-care (01) ==
PROVIDERS: Emergency Provider Emergency Medicine
DX: O99.323 Drug use complicating pregnancy, third trimester (principal); F11.90 Opioid use, unspecified, uncomplicated; Z3A.31 31 weeks gestation of pregnancy; O99.513 Diseases of the respiratory system complicating pregnancy, third trimester; J96.01 Acute respiratory failure with hypoxia
CPT/HCPCS: 36415; 80053; 80307; 83605; 85025; 93005; 96360; 99284; J7030

== ENCOUNTER 2022-08-30 00:31 | Inpatient (IN) | payer BC, MEDICAID, SELFPAY ==
[2022-08-29 23:24] VITALS: RESP 20
[2022-08-29 23:34] VITALS: BP 119/69; PULSE 88; TEMP 35.9
[2022-08-30] VITALS (108 sets, daily range): BP systolic 82–129; BP diastolic 47–91; PULSE 67–151; O2SAT 99–100; BMI 26.9
[2022-08-30] MEDS: lactated ringers 1,000 ML 999 ML IV ×2 (00:43→01:44)
[2022-08-30 01:07] LABS: Basophils % 0.3 %; Eosinophils # 0.1 10^3/uL (0.0-0.8); Eosinophils % 1.1 %; Hematocrit 38.7 % (37.0-47.0); Hemoglobin 13.2 g/dL (11.5-15.3); Lymphocytes # 1.7 10^3/uL (0.8-4.8); Lymphocytes % 14.1 %; Mean Corpuscular HGB Conc 34.1 g/dL (30.0-36.0); Mean Corpuscular Hemoglobin 30.2 pg (28.0-34.0); Mean Corpuscular Volume 88.6 fl (81-99); Mean Platelet Volume 10.2 fL (7.4-10.4); Monocytes # 0.9 10^3/uL (0.2-0.9); Monocytes % 7.3 %; Neutrophils # 9.19 10^3/uL (1.8-7.7); Neutrophils % 76.8 %; Nucleated Red Blood Cells % 0 %; Platelet Count 288 10^3/cmm (130-400); Red Blood Count 4.37 10^6/uL (4.1-5.3); Red Cell Distribution Width 12.6 % (12.1-15.1)
[2022-08-30 01:11] LABS: Amphetamines Screen Urine Negative (Negative); Barbiturates Screen Urine Negative (Negative); Benzodiazepines Screen Urine Negative (Negative); Cocaine Screen Urine Negative (Negative); Opiate Screen Urine Negative (Negative); PCP Screen Urine Negative (Negative); THC Screen Urine Negative (Negative)
[2022-08-30] MEDS: ondansetron 2 mg/ML SDV 2 mL 4 MG IVP (01:20)
--- NOTE | 2022-08-30 01:38 | ANES.PREANE2 ---
Pre-Anesthetic Assessment Height/Weight: Height 1.57 m Weight 66.678 kg Temp Pulse Resp BP O2 Del Method 96.6 F L 86 20 H 119/65 08/29/22 23:34 08/30/22 00:36 08/29/22 23:24 08/30/22 00:36 08/30/22 01:05 Epidural Was Beta Venkatesh taken within 24 hours: N/A Was Clonidine taken within 24 hours: N/A Last Intake: 22:00 (08/29/2022) Social Tobacco (Vape, marijuana) and No alcohol Exam alert, oriented x 3, clear to auscultation bilaterally and regular rate & rhythm Airway Submandibular: within normal limits Cervical ROM: within normal limits Mallampati: Class II Dentition: full History/ROS No significant history except as noted and No significant complaints Pulmonary Asthma (Asthma and pneumonia as a child, grew out of it at age 7) CV/HEM None reported None reported Hepatic None reported GI Gastroesophageal Reflux Disease (d/t ) Metabolic None reported Musc/skel None reported Neuropsych Anxiety, Depression and Seizure (OVer 10 years ago, on no medication) Anesthetic Plan ASA status: 2 Anesthesia: Regional (specify below) (Epidural) Risk of > 500 ml blood loss (7ml/kg in children): No Medications/Allergies Home Medications Medication Instructions Recorded Confirmed Last Taken Type propranolol 20 mg tablet 20 mg PO TID PRN Anxiety 30 days 11/29/21 02/19/22 Unknown Rx #90 tabs acetaminophen 500 mg tablet 1,000 mg PO Q4H PRN Pain 02/19/22 02/19/22 02/18/22 History aripiprazole 5 mg tablet (Abilify) 5 mg PO DAILY PRN unknown 02/19/22 02/19/22 Unknown History buspirone 10 mg tablet 15 mg PO TID PRN Anxiety 02/19/22 02/19/22 02/16/22 History duloxetine 60 mg capsule,delayed 120 mg PO DAILY PRN unknown 02/19/22 02/19/22 Unknown History release (Cymbalta) naloxone 4 mg/actuation nasal spray 4 mg intranasal Q3M PRN opioid 07/20/22 Unknown Rx overdose #2 ea Allergies Allergy/AdvReac Type Severity Reaction Status Date / Time albuterol Allergy unknown Verified 02/19/22 09:20 Current Medications Generic Name Dose Route Start Last Admin Trade Name Freq PRN Reason Stop Dose Admin Lactated Ringer's 1,000 mls @ 999 mls/hr 08/30/22 00:50 08/30/22 00:43 Lactated Ringers IV 999 mls/hr .Q1H1M PRN Administration See label comments Ondansetron HCl 4 mg 08/30/22 00:26 08/30/22 01:20 Ondansetron 2 Mg/Ml Sdv 2 Ml IVP 4 mg Q4H PRN Administration NAUSEA AND VOMITING PFSH Anesthesia Medical History Cannabis dependence, uncomplicated Generalized anxiety disorder Major depressive disorder, recurrent severe without psychotic features Psychiatric care Family History Other Breast cancer Cervical cancer Colon cancer Heart disease Ovarian cancer Prostate cancer Thyroid disease Uterine cancer Denies family history of Diabetes Hyperlipidemia Bleeding disorder Hypertension Stroke Female Reproductive History Date of last menstrual period: 09/12/21 : 1 Data Anesthesia : 08/30/22 00:20 Short CBC 08/30/22 Range/Units 00:20 WBC 12.0 H (4.0-10.0) 10^3/uL Hgb 13.2 (11.5-15.3) g/dL Hct 38.7 (37.0-47.0) % MCV 88.6 (81-99) fl Plt Count 288 (130-400) 10^3/cmm Neut % (Auto) 76.8 % Neut # (Auto) 9.19 H (1.8-7.7) 10^3/uL Cardiac Studies: No Data to Display
--- NOTE | 2022-08-30 02:37 | ANES.PROC ---
Documented by User: Caleb Win, MIKE 08/30/22 02:38 Anesthesia Procedures Procedure/Date: 08/30/22 Epidural: Time Out Performed: Yes Consents Signed: Procedure Consent and NPO Consent Consent: requested by attending/covering physician, from patient, risks and benefits reviewed and patient agrees to proceed Lumbar Level: L3-L4 Epidural position: sitting Epidural procedure: sterile prep of area, 1% lidocaine to numb the area, neg for paresthesia, test dose given, 1.5% xylocaine 1:200k epi (3ml/2ml), 0.2% Ropivacaine bolus ml (5 ml), placed PCEA, no systemic response, sterile dressing applied and 0.2% Ropiavacaine @ mls/hr (11) Documented by User: Jay Jay Vieyra 08/30/22 14:43 Anesthesia Procedures Procedure/Date: 08/30/22
[2022-08-30] MEDS: dextrose 5%-lactated ringers 1,000 ML 125 ML IV ×2 (04:04→19:27)
--- NOTE | 2022-08-30 13:23 | P.PCNOB_ITS ---
Pre-Delivery Course: This is a 22-year-old G1, P0 at 37 weeks 6 days gestation who presented to labor and delivery in active labor. She was admitted overnight and received an epidural for pain management. Nursing had felt that her exam was amenable to possible rupture of membranes but when I presented to examine her she was 6-7 cm/c/ballotable. ROM was not performed. She was mehnaz regularly with reassuring FHT. A&P Assessment and plan (1) Active labor at term: Coding Level of Care Code Acute Accounting Manager Assistant Controller for Lug Fwleonarda Diagnoses Active labor at term
[2022-08-30] MEDS: oxytocin 30 UNIT/500 ML BAG IV (18:27)
[2022-08-31] VITALS (17 sets, daily range): BP systolic 100–212; BP diastolic 56–154; PULSE 60–123; RESP 15–18; TEMP 36.6–36.8; O2SAT 97–98
[2022-08-31] MEDS: dextrose 5%-lactated ringers 1,000 ML 125 ML IV (00:18)
--- NOTE | 2022-08-31 00:27 | PM.DELIVERY ---
Delivery Note: Date of delivery: August 31, 2022 Pre-Delivery Course: Throughout the afternoon the pt made adequate cervical change but stalled out around 5pm. L&D was very busy and decision was made to hold off on augmenting with pitocin until staffing was more adequate. Her Pitocin was started a couple hours later. I was notified by nursing around 2330 that her water had broken with copious amount of clear fluid. The infant had had some prolonged decelerations into the 80s. She was having some repetitive decelerations with contractions. Her Pitocin was stopped and she was placed in hands and knees position. When I presented to check her the heart tones had returned to baseline with mod variability and no decelerations. We moved her onto her back and the tolerated this well. Her cervical exam was 9 cm complete and 0 station. A&P Assessment and plan (1) Active labor at term: Coding Level of Care Code Acute Packaging Sales Consultant for Chava Li Diagnoses Active labor at term
--- NOTE | 2022-08-31 01:51 | P.PCNOB_ITS ---
Delivery Note: Date of delivery: August 31, 2022 Procedure: Estimated blood loss (mL): 100 Pre-Delivery Course: The patient had routine care at [facility]. Her was complicated by several things: positive RPR titer of 1:8 that was treated at the health department with follow-up titer 1:1. Her initial UDS was positive for marijuana. She had an ER visit 07/19/22 where she was treated for accidental heroin overdose. She recently began outpatient treatment at [facility] for addiction and was started on methadone 30 mg daily. As for her other labs, she was blood type AB+ antibody negative, HIV nonreactive, rubella immune, GC chlamydia negative, hepatitis C surface antibody nonreactive, hepatitis B surface antigen nonreactive, she passed her glucose tolerance test. She was GBS negative. Delivery: This is a 22-year-old at 37 weeks 6 days gestation who presented to labor and delivery in active labor. She received an epidural for pain management. When she was about 7 cm dilated her labor slowed down and she was augmented using Pitocin. She had spontaneous rupture of membranes with a copious amount of clear fluid. Rupture of membranes was approximately 2-1/2 hours prior to delivery. She had a normal spontaneous vaginal delivery of a viable female infant weight 2815 g, 6 pounds 3 ounces, Apgars 4 and 9 over an intact perineum. The was suctioned at delivery and placed on the mother's chest. The cord was clamped and cut. The infant was taken to the warmer by the pediatric nurse. The placenta was delivered grossly intact and normal to inspection. There was a first-degree left labial laceration that did not require suturing because it was hemostatic. was stunned and required initial resuscitation but is now skin to skin with mom and both are doing well. Coding Level of Care Code Acute Protein Purification Scientist for Chava Li
--- NOTE | 2022-08-31 08:34 | ANE.PACU2 ---
Inpatient post-anesthesia follow up: Airway intact: Yes Vital signs: Temperature 98.0 F Pulse Rate 75 Respiratory Rate 15 Blood Pressure 116/78 Pulse Oximetry 98 Oxygen Delivery Me thod Room Air Oxygen Flow Rate Fraction of Inspir ed Oxygen Hydration adequate: Yes Nausea and vomiting: No Pain level: 2 Mental status: Baseline
[2022-08-31] MEDS: ibuprofen 800 mg tablet PO ×3 (08:48→21:53)
[2022-08-31] MEDS: docusate sodium 100 mg Capsule PO ×2 (08:49→18:30)
[2022-08-31] MEDS: prenatal vitamin Capsule 1 CAP PO (08:49)
[2022-08-31] MEDS: methadone 10 mg Tablet 50 MG PO (10:50)
[2022-08-31 14:13] LABS: Hematocrit 31.2 % (37.0-47.0); Hemoglobin 10.7 g/dL (11.5-15.3); Mean Corpuscular HGB Conc 34.3 g/dL (30.0-36.0); Mean Corpuscular Hemoglobin 30.7 pg (28.0-34.0); Mean Corpuscular Volume 89.7 fl (81-99); Mean Platelet Volume 10.1 fL (7.4-10.4); Platelet Count 230 10^3/cmm (130-400); Red Blood Count 3.48 10^6/uL (4.1-5.3); Red Cell Distribution Width 12.7 % (12.1-15.1); White Blood Count 14.6 10^3/uL (4.0-10.0)
--- NOTE | 2022-08-31 21:08 | PC.NURSE ---
This nurse sat down and visited with patient about previous drug usage and about the situation with baby's dad. Patient shared with this nurse that when she was in the ER with the overdose, she had relapsed for a couple weeks after losing her mom. Patient stated she has been clean since and has started seeing someone at [facility] for counseling, due to depression. She also stated that she wants to be seeing someone for the depression so she can keep doing well and wants to be aware of any depression. The patient also spoke about the baby's dad and said that he has mild Tourette's syndrome and that he often is mistaken for being on drugs because of his jerking from that. She said he has had an alcohol problem in the past, but he has been on a medication for that to keep him from drinking alcohol. She said the dad, Vicente, has been doing well and has been very encouraging of her getting treatment and counseling.
[2022-09-01 04:30] VITALS: BP 119/82; PULSE 68; RESP 16; O2SAT 98
--- NOTE | 2022-09-01 06:20 | P.DS_ITS ---
Discharge Providers FRUIT EXPRESS AGENT Date of Admission: 08/30/22 00:31 Date of Discharge: 09/01/22 Attending Provider at Admission: Deann Torres MD Attending Provider at Discharge: Sivakumar Hodgson Diagnoses at Discharge Discharge Diagnosis (1) Active labor at term: Status: Acute Reason for Visit Reason for Visit: CONTRACTIONS Hospital Course Hospital Course The patient is a 22-year-old 1 para 0 who had an unremarkable vaginal delivery at 38 weeks estimated gestational age. Her had been remarkable for a drug screen positive for marijuana, and accidental heroin overdose, and being on methadone provided by [facility]. Her syphilis was appropriately treated and her titer went from 1: 8-1: 1. Her delivery was unremarkable. She had no significant tears. Her course has also been relatively unremarkable. Her bleeding has been within normal limits. Her pain has been well controlled. She is bottlefeeding her baby well. She is continued on her methadone during her hospital stay. Information Peripartum Data: Delivery Method: Vaginal Physical Exam Narrative: The patient is alert. She appears comfortable. Her heart has a regular rate and rhythm with no murmurs appreciated. Lungs are clear to auscultation bilaterally. Her fundus is firm and below the umbilicus. Urinary Catheter Management: Perez: Cath Placed During This Visit: yes, but has since been removed by the nurse Reason for Continuing Indwelling Catheter: Decision to DC Catheter Urinary Catheter Date of Insertion: 08/30/22 Urinary Catheter Time of Insertion: 03:28 Date Urinary Catheter Removed: 08/31/22 Time Urinary Catheter Discontinued: 01:00 Discharge Data Studies Completed and Pending Laboratory Results WBC 14.6 10^3/uL (4.0-10.0) H 08/31/22 14:04 RBC 3.48 10^6/uL (4.1-5.3) L 08/31/22 14:04 Hgb 10.7 g/dL (11.5-15.3) L 08/31/22 14:04 Hct 31.2 % (37.0-47.0) L 08/31/22 14:04 MCV 89.7 fl (81-99) 08/31/22 14:04 MCH 30.7 pg (28.0-34.0) 08/31/22 14:04 MCHC 34.3 g/dL (30.0-36.0) 08/31/22 14:04 RDW 12.7 % (12.1-15.1) 08/31/22 14:04 Plt Count 230 10^3/cmm (130-400) 08/31/22 14:04 MPV 10.1 fL (7.4-10.4) 08/31/22 14:04 Neut % (Auto) 76.8 % 08/30/22 00:20 Lymph % (Auto) 14.1 % 08/30/22 00:20 [place] % (Auto) 7.3 % 08/30/22 00:20 Eos % (Auto) 1.1 % 08/30/22 00:20 Baso % (Auto) 0.3 % 08/30/22 00:20 Neut # (Auto) 9.19 10^3/uL (1.8-7.7) H 08/30/22 00:20 Lymph # (Auto) 1.7 10^3/uL (0.8-4.8) 08/30/22 00:20 [place] # (Auto) 0.9 10^3/uL (0.2-0.9) 08/30/22 00:20 Eos # (Auto) 0.1 10^3/uL (0.0-0.8) 08/30/22 00:20 Baso # (Auto) 0.0 10^3/uL (0.0-0.1) 08/30/22 00:20 Nucleated RBC % (auto) 0 % 08/30/22 00:20 Nucleated RBCs # 0.0 /100WBC 08/30/22 00:20 Urine Opiates Screen Negative ng/mL (Negative) 08/30/22 00:24 Ur Barbiturates Screen Negative ng/mL (Negative) 08/30/22 00:24 Ur Phencyclidine Scrn Negative ng/mL (Negative) 08/30/22 00:24 Ur Amphetamines Screen Negative ng/mL (Negative) 08/30/22 00:24 U Benzodiazepines Scrn Negative ng/mL (Negative) 08/30/22 00:24 Urine Cocaine Screen Negative ng/mL (Negative) 08/30/22 00:24 U Marijuana (THC) Screen Negative ng/mL (Negative) 08/30/22 00:24 Vitals Last Vital Signs Temp 98.2 F 08/31/22 21:52 Pulse 68 09/01/22 04:30 Resp 16 09/01/22 04:30 BP 119/82 09/01/22 04:30 Pulse Ox 98 09/01/22 04:30 O2 Del Method 09/01/22 04:30 Discharge Plan Discharge Patient Disposition: Home Condition: Stable Prescriptions: New ibuprofen 800 mg Tablet 800 mg PO TID Qty: 45 0RF -U 106.5-1 mg Capsule 1 cap PO DAILY Qty: 100 0RF Discontinued propranolol 20 mg tablet 20 mg PO TID PRN (Reason: Anxiety) 30 Days Qty: 90 1RF acetaminophen [Tylenol Ex Str Rapid Release] 500 mg Tablet 1,000 mg PO Q4H PRN (Reason: Pain) buspirone 10 mg tablet 15 mg PO TID PRN (Reason: Anxiety) aripiprazole [Abilify] 5 mg tablet 5 mg PO DAILY PRN (Reason: unknown) duloxetine [Cymbalta] 60 mg capsule,delayed release(DR/EC) 120 mg PO DAILY PRN (Reason: unknown) naloxone 4 mg/actuation spray,non-aerosol 4 mg intranasal Q3M PRN (Reason: opioid overdose) Qty: 2 2RF Rx Instructions: spray 1 dose into ONE nostril; alternate nostrils w each until help arrives Discharge Orders: Discharge Order (Routine); Ordered 09/01/22 Ordered By: Sivakumar Hodgson Referrals: Sivakumar Hodgson MD [Physician] - Deann Torres MD [Physician] - 6 Weeks Discharge Diet: Usual diet Discharge Activity: Limit activity as instructed Patient Instructions: Opioid Safety Discharge Attestations FR[employer] EXPRESS AGENT Time Spent in Discharge Care*: less than 30 min Coding Level of Care Code Acute Motor Equipment Sergeant for Chg Fwd Diagnoses Active labor at term
[2022-09-01] MEDS: prenatal vitamin Capsule 1 CAP PO (08:49)
[2022-09-01] MEDS: docusate sodium 100 mg Capsule PO (08:49)
[2022-09-01] MEDS: methadone 10 mg Tablet 50 MG PO (08:49)
[2022-09-01] MEDS: ibuprofen 800 mg tablet PO (08:49)
[2022-09-01 09:09] VITALS: BP 118/81; PULSE 73; RESP 18; O2SAT 100
[2022-09-01 12:52] VITALS: BP 107/69; PULSE 65; RESP 18; TEMP 36.8; O2SAT 98
== END 2022-09-01 12:53 | disposition home or self-care (01) | DRG 806 ==
LOC: OPOB 00:32 → OBGYN 00:32
PROVIDERS: Admitting Provider Family Medicine; Visit Provider Family Medicine
DX: O76 Abnormality in fetal heart rate and rhythm complicating labor and delivery (principal); O98.12 Syphilis complicating childbirth; Z37.0 Single live birth; O99.324 Drug use complicating childbirth; A53.9 Syphilis, unspecified; F12.90 Cannabis use, unspecified, uncomplicated; O70.0 First degree perineal laceration during delivery; Z3A.38 38 weeks gestation of pregnancy
CPT/HCPCS: 12345; 36415; 51702; 59025; 59409; 80306; 85025; 85027; 99211; J2405; J2590; J2795; J7120; J7121

== ENCOUNTER 2023-10-02 14:00 | Emergency (ER) | payer BC, MEDICAID, SELFPAY ==
[2023-10-02 14:06] VITALS: BMI 29.2
[2023-10-02 14:18] VITALS: BP 118/66; PULSE 102; RESP 17; TEMP 36.7; O2SAT 98
--- NOTE | 2023-10-02 14:21 | PC.NURSE ---
triage pt states that before her episode she had a sharp pain in her abdomen and she vomited and passed out.
--- NOTE | 2023-10-02 14:53 | ED_ITS ---
HPI - Syncope 2 General: Chief Complaint: Syncope Stated Complaint: Syncope Time Seen by Provider: 10/02/23 14:51 History of Present Illness: 23-year-old female comes in today for co mplaints of passing out at home. Patient reports that she awakened this morning had sudden onset of abdominal pain followed by nausea and vomiting. Patient had had an upper respiratory infection last week and was seen by primary care. Patient reports she has felt well through the holiday and then today she woke up with this abdominal pain followed by nausea and vomiting. Patient then went to go to the bathroom and passed out while walking to the bathroom. Patient appears nontoxic. Patient is alert and oriented. Patient reports no abdominal surgeries. Patient reports taking control and methadone. Patient has a history of major depressive disorder, substance use disorder, and anxiety disorder. Associated symptoms: Reports abdominal pain and nausea; Deny chest pain, fever(s) or headache(s) Review of Systems 2 General: Reports: 10 or more systems reviewed and unremarkable except in HPI and below Const: Denies: fever(s) Card: Denies: chest pain Resp: Denies: dyspnea GI: Reports: abdominal pain, nausea and vomiting; Denies: diarrhea or constipation : Denies: difficulty voiding Musc: Denies: neck pain or back pain Neuro: Denies: headache(s) PFSH ED 2 PFSH: Medical History Cannabis dependence, uncomplicated Generalized anxiety disorder Major depressive disorder, recurrent severe without psychotic features Family History Other Breast cancer Cervical cancer Colon cancer Heart disease Ovarian cancer Prostate cancer Thyroid disease Uterine cancer Denies family history of Diabetes Hyperlipidemia Bleeding disorder Hypertension Stroke Physical Exam 2 Const: COMMON NORMALS: alert HENMT: COMMON NORMALS: normocephalic HEAD & SCALP: normocephalic MOUTH: Normal oral and palatal mucosa present Neck/C-Spine: COMMON NORMALS: full ROM Resp: COMMON NORMALS: normal respiratory effort and clear to auscultation bilaterally AUSCULTATION: clear to auscultation bilaterally Cardio: COMMON NORMALS: regular rate and regular rhythm RATE: regular rate RHYTHM: regular rhythm GI: COMMON NORMALS: Soft to palpation and non-tender AUSCULTATION: Yes normoactive bowel sounds PALPATION: Yes Soft to palpation Back/Pelvis: COMMON NORMALS: thoracic and lumbar spine normal to inspection Extremity: COMMON NORMALS: normal to inspection Neuro: SENSORIUM/ORIENTATION: Yes alert Skin: COMMON NORMALS: turgor normal GENERAL SKIN EXAM: turgor normal Course 2 Vital Signs: Vital signs: Vital Signs Temperature 98.1 F 10/02/23 14:18 Pulse Rate 70 10/02/23 15:35 Respiratory Rate 17 10/02/23 14:18 Blood Pressure 111/69 10/02/23 15:35 Pulse Oximetry 98 10/02/23 14:18 Oxygen Delivery Me thod Room Air 10/02/23 14:18 MDM - Syncope Medical Decision Making Patient comes in today for episode of passing out at home. Patient had an episode of abdominal pain followed by nausea and vomiting prior to the syncopal episode. Patient appears nontoxic. Abdomen soft with no tenderness at this time. Vital signs are normal. Differential diagnosis includes but not limited to vasovagal syncope, gallbladder colic, gastroenteritis, pancreatitis, malingering. KUB noted constipation. CBC had some mild leukocytosis. CMP was unremarkable except for anion gap of 20. Patient was given a 500 mL bolus and some Zofran for nausea. Patient be continued on Zofran and lactulose for constipation and nausea with vomiting. No signs of acute illness, injury, or severe illness was noted. Patient was stable and discharged home with recommendations for correction of constipation and follow-up with primary care or return to ER for worsening symptoms. Lab Data 10/02/23 15:20 10/02/23 15:20 Radiology Impressions KUB X-Ray 10/02/23 15:03 IMPRESSION: Constipation. Laboratory Results WBC 13.24 10^3/uL (3.29-11.43) H 10/02/23 15:20 RBC 5.18 10^6/uL (3.85-5.65) 10/02/23 15:20 Hgb 15.50 g/dL (11.27-16.99) 10/02/23 15:20 Hct 45.2 % (36-47) 10/02/23 15:20 MCV 87.3 fl (85-98) 10/02/23 15:20 MCH 29.9 pg (27-33) 10/02/23 15:20 MCHC 34.3 g/dL (30-55) 10/02/23 15:20 RDW 11.9 % (12.1-15.1) L 10/02/23 15:20 Plt Count 317 10^3/cmm (157-399) 10/02/23 15:20 MPV 9.7 fL (7.4-10.4) 10/02/23 15:20 Neut % (Auto) 86.8 % 10/02/23 15:20 Lymph % (Auto) 9.2 % 10/02/23 15:20 [place] % (Auto) 3.2 % 10/02/23 15:20 Eos % (Auto) 0.1 % 10/02/23 15:20 Baso % (Auto) 0.4 % 10/02/23 15:20 Neut # (Auto) 11.49 10^3/uL (1.8-7.7) H 10/02/23 15:20 Lymph # (Auto) 1.2 10^3/uL (0.8-4.8) 10/02/23 15:20 [place] # (Auto) 0.4 10^3/uL (0.2-0.9) 10/02/23 15:20 Eos # (Auto) 0.0 10^3/uL (0.0-0.8) 10/02/23 15:20 Baso # (Auto) 0.1 10^3/uL (0.0-0.1) 10/02/23 15:20 Nucleated RBC % (auto) 0 % 10/02/23 15:20 Nucleated RBCs # 0.0 /100WBC 10/02/23 15:20 Sodium 137 mmol/L (136-145) 10/02/23 15:20 Potassium 3.9 mmol/L (3.5-5.1) 10/02/23 15:20 Chloride 101 mmol/L (98-107) 10/02/23 15:20 Carbon Dioxide 20 mmol/L (22-29) L 10/02/23 15:20 Anion Gap 19.9 (5-19) H 10/02/23 15:20 BUN 8 mg/dL (6-20) 10/02/23 15:20 Creatinine 0.8 mg/dL (0.5-0.9) 10/02/23 15:20 GFR Calculation 88.9 mL/min (90-130) L 10/02/23 15:20 Glucose 88 mg/dL (65-115) 10/02/23 15:20 Calculated Osmolality 282 mOsm/kg (285-295) L 10/02/23 15:20 Calcium 9.5 mg/dL (8.5-10.5) 10/02/23 15:20 Total Bilirubin 0.3 mg/dL (0.15-1.2) 10/02/23 15:20 AST 19 U/L (0-32) 10/02/23 15:20 ALT 23 U/L (0-33) 10/02/23 15:20 Alkaline Phosphatase 109 U/L (35-105) H 10/02/23 15:20 Total Protein 7.7 g/dL (6.6-8.7) 10/02/23 15:20 Albumin 4.4 g/dL (3.5-5.2) 10/02/23 15:20 Globulin 3.3 g/dL (1.3-4.6) 10/02/23 15:20 Lipase 52 U/L (13-60) 10/02/23 15:20 HCG, Qual Negative (Negative) 10/02/23 15:20 Urine Color Yellow (Yellow) 10/02/23 15:33 Urine Appearance Hazy (CLEAR) A 10/02/23 15:33 Urine pH 6 (5-7) 10/02/23 15:33 Ur Specific [employer] 1.020 (1.005-1.030) 10/02/23 15:33 Urine Protein Neg (Negative) 10/02/23 15:33 Urine Glucose (UA) Norm (Normal) 10/02/23 15:33 Urine Ketones 2+ (Negative) H 10/02/23 15:33 Urine Blood Neg (Negative) 10/02/23 15:33 Urine Nitrate Negative (Negative) 10/02/23 15:33 Urine Bilirubin Neg (Negative) 10/02/23 15:33 Urine Urobilinogen Norm mg/dL (Negative) 10/02/23 15:33 Ur Leukocyte Esterase Negative (Negative) 10/02/23 15:33 Urine RBC Rare /hpf (0-2) 10/02/23 15:33 Urine WBC Rare /hpf (0-5) 10/02/23 15:33 Ur Squamous Epith Cells 5-10 /hpf (0-5) H 10/02/23 15:33 Ur Transition Epith Cell 0-4 /hpf 10/02/23 15:33 Amorphous Sediment Not Reportable 10/02/23 15:33 Urine Bacteria Trace /hpf (NONE) 10/02/23 15:33 Urine Mucus 1+ /hpf 10/02/23 15:33 All radiology interpretation(s) finalized by discharge Discharge Plan Discharge Patient Disposition: Home Clinical Impression: Vasovagal syncope Nausea & vomiting Qualifiers: Vomiting type: unspecified Qualified Code(s): R11.2 - Nausea with vomiting, unspecified Constipation Qualifiers: Constipation type: unspecified constipation type Qualified Code(s): K59.00 - Constipation, unspecified Condition: Stable Prescriptions: New lactulose 10 gram/15 mL (15 mL) solution 20 g PO BID PRN (Reason: constipation) Qty: 600 0RF ondansetron 4 mg tablet,disintegrating 4 mg PO Q8H PRN (Reason: nausea and vomiting) Qty: 10 0RF No Action norgestimate-ethinyl estradiol [Estarylla] 0.25-35 mg-mcg tablet 1 tab PO DAILY doxycycline hyclate 100 mg tablet 100 mg PO BID 7 Days Qty: 14 0RF ibuprofen 800 mg Tablet 800 mg PO TID Qty: 45 0RF Discharge Orders: Discharge ED (Routine); Ordered 10/02/23 Ordered By: Elbert Saez Discharge Diet: Usual diet Discharge Activity: Increase activity as tolerated Patient Instructions: Constipation (ED) Activity Restrictions/Additional Instructions: Home and rest. Drink plenty water and fluids. Activity as tolerated. Use lactulose 30 mL twice a day as needed for constipation. Use Zofran, ondansetron, every 8 hours as needed for nausea or vomiting. Follow-up with primary care for further evaluation and treatment. Return to ED for worsening symptoms such as high fever greater than 100.4, blood in vomit or stool, or new concerns. Coding Level of Care Code ED Coding Specialist for Chava Li
--- NOTE | 2023-10-02 15:03 | XRR_ITS ---
PROCEDURE INFORMATION: Exam: XR Abdomen Exam date and time: 10/02/2023 3:13 PM Age: 23 years old Clinical indication: Nausea and vomiting; Abdominal pain; Generalized; Additional info: Abd pain, n/v TECHNIQUE: Imaging protocol: Radiologic exam of the abdomen. Views: Frontal supine view of the abdomen. 1 View. COMPARISON: CR XR chest 1V [id number] 12/23/2018 3:54 AM FINDINGS: Gastrointestinal tract: Nonobstructive bowel gas pattern with diffuse colonic stool/constipation. Bones/joints: No acute findings. XR/XR KUB [id number] IMPRESSION: Constipation.
[2023-10-02 15:35] VITALS: BP 111/69; BP 126/80; BP 131/90; PULSE 104; PULSE 70; PULSE 85
[2023-10-02 15:37] LABS: Basophils # 0.1 10^3/uL (0.0-0.1); Basophils % 0.4 %; Eosinophils % 0.1 %; Hematocrit 45.2 % (36-47); Lymphocytes # 1.2 10^3/uL (0.8-4.8); Lymphocytes % 9.2 %; Mean Corpuscular HGB Conc 34.3 g/dL (30-55); Mean Corpuscular Hemoglobin 29.9 pg (27-33); Mean Corpuscular Volume 87.3 fl (85-98); Mean Platelet Volume 9.7 fL (7.4-10.4); Monocytes # 0.4 10^3/uL (0.2-0.9); Monocytes % 3.2 %; Neutrophils # 11.49 10^3/uL (1.8-7.7); Neutrophils % 86.8 %; Nucleated Red Blood Cells % 0 %; Platelet Count 317 10^3/cmm (157-399); Red Blood Count 5.18 10^6/uL (3.85-5.65); Red Cell Distribution Width 11.9 % (12.1-15.1); White Blood Count 13.24 10^3/uL (3.29-11.43)
[2023-10-02 16:02] LABS: Alanine Aminotransferase 23 U/L (0-33); Albumin Level 4.4 g/dL (3.5-5.2); Alkaline Phosphatase 109 U/L (35-105); Anion Gap 19.9 (5-19); Aspartate Amino Transferase 19 U/L (0-32); Blood Urea Nitrogen 8 mg/dL (6-20); Calcium 9.5 mg/dL (8.5-10.5); Carbon Dioxide 20 mmol/L (22-29); Chloride 101 mmol/L (98-107); Globulin 3.3 g/dL (1.3-4.6); Glomerular Filtration Rate 88.9 mL/min (90-130); Glucose 88 mg/dL (65-115); Lipase 52 U/L (13-60); Osmolality Calculated 282 mOsm/kg (285-295); Potassium 3.9 mmol/L (3.5-5.1); Sodium 137 mmol/L (136-145); Total Bilirubin 0.3 mg/dL (0.15-1.2); Total Protein 7.7 g/dL (6.6-8.7)
[2023-10-02] MEDS: sodium chloride 0.9% 500 ML 999 ML IV (16:03)
[2023-10-02 16:04] LABS: HCG, Serum Qual Negative (Negative)
[2023-10-02 16:58] LABS: Add Urine Microscopic? YES; Bilirubin Urine Neg (Negative); Blood Urine Neg (Negative); Glucose Urine UA Norm (Normal); Ketones Urine 2+ (Negative); Leukocyte Esterase Urine Negative (Negative); Nitrate Urine Negative (Negative); Protein Urine Neg (Negative); Urine Appearance Hazy (CLEAR); Urine Color Yellow (Yellow); Urobilinogen Urine Norm (Negative); pH Urine 6 (5-7)
[2023-10-02 17:01] LABS: Add Urine Culture? No; Bacteria Urine TRACE /hpf; Mucus Urine 1+ /hpf; RBC Urine RARE /hpf (0-2); Transitional Epi Cells Urine 0-4 /hpf; WBC Urine RARE /hpf (0-5)
== END 2023-10-02 17:13 | disposition home or self-care (01) ==
PROVIDERS: Emergency Provider Nurse Practitioner Family
DX: R55 Syncope and collapse (principal); K59.00 Constipation, unspecified
CPT/HCPCS: 36415; 74018; 80053; 81001; 83690; 84703; 85025; 96360; 99284; J7040

== ENCOUNTER → 2024-06-19 10:01 | Outpatient (BNVA) | payer BC, MEDICAID, SELFPAY | PROVIDERS: PCP Nurse Practitioner Family; Visit Provider Nurse Practitioner Family | DX: R53.83 Other fatigue (principal); L65.9 Nonscarring hair loss, unspecified | CPT/HCPCS: 80053; 84443; 85025 ==

== ENCOUNTER 2024-10-30 10:58 | Emergency (ER) | payer BC, MEDICAID, SELFPAY ==
[2024-10-30 11:33] VITALS: BP 108/69; PULSE 111; RESP 16; TEMP 36.7; O2SAT 99
--- NOTE | 2024-10-30 11:44 | W.ED.PREGNAN ---
HPI - General: Chief complaint: Vaginal Bleeding Stated complaint: spotting(8wk preg) Time Seen by Provider: 10/30/24 11:02 Source: patient Mode of arrival: ambulatory Limitations: no limitations History of Present Illness: 24-year-old female who is currently roughly 7-8 weeks states she has had some vaginal spotting since last night. She denies any heavy bleeding she denies any pain denies any fevers denies any vomiting or diarrhea. Associated symptoms: Deny abdominal pain, headache(s), nausea or vomiting Related Data Home Medications Medication Instructions Recorded Confirmed norgestimate 0.25 mg-ethinyl 1 tab PO DAILY 07/10/23 06/15/24 estradiol 35 mcg tablet (Estarylla) Methadone PO 10/07/23 06/15/24 Previous Rx's Medication Instructions Recorded omeprazole magnesium 20 mg 20 mg PO DAILY #30 tabs 12/26/23 tablet,delayed release (Prilosec OTC) venlafaxine 75 mg capsule,extended 75 mg PO .q am #14 caps 03/02/24 release 24 hr Allergies Allergy/AdvReac Type Severity Reaction Status Date / Time albuterol Allergy unknown Verified 06/15/24 12:13 Review of Systems Const: Denies: fever(s), chills, body aches or change in appetite ENMT: Denies: throat pain or dental pain Card: Denies: chest pain Resp: Denies: dyspnea GI: Denies: abdominal pain, nausea, vomiting or diarrhea : Reports: vaginal bleeding Musc: Denies: neck pain or back pain Skin/Breast: Denies: rash Neuro: Denies: headache(s) PFSH ED PFSH: Medical History Psychiatric care Cannabis dependence, uncomplicated Generalized anxiety disorder Major depressive disorder, recurrent severe without psychotic features Family History Other Breast cancer Cervical cancer Colon cancer Heart disease Ovarian cancer Prostate cancer Thyroid disease Uterine cancer Denies family history of Diabetes Hyperlipidemia Bleeding disorder Hypertension Stroke Social History Smoking and tobacco/nicotine status: current some day tobacco/nicotine user (VAPE) Physical Exam Const: COMMON NORMALS: no acute distress, patient oriented x3 and healthy appearing HENMT: COMMON NORMALS: normocephalic and atraumatic HEAD & SCALP: normocephalic and atraumatic Eye: COMMON NORMALS: conjunctivae normal CONJUNCTIVA: Yes conjunctivae normal Neck/C-Spine: COMMON NORMALS: full ROM and supple Chest: COMMONS NORMALS: normal inspection of the chest Resp: COMMON NORMALS: normal respiratory effort Cardio: COMMON NORMALS: regular rate, regular rhythm and No murmurs present (Cardio) RATE: regular rate RHYTHM: regular rhythm GI: COMMON NORMALS: Normal to inspection, nondistended, normoactive bowel sounds present, Soft to palpation and non-tender PALPATION: Yes Soft to palpation Extremity: COMMON NORMALS: normal to inspection Neuro: COMMON NORMALS: patient oriented x3, moves all extremities and no focal motor deficits Psych: COMMON NORMALS: mental status grossly normal, Normal thought process present and cooperative THOUGHT PROCESS: Normal thought process present Skin: COMMON NORMALS: no rashes or lesions noted and no wounds GENERAL SKIN EXAM: no rashes or lesions noted Course Vital Signs: Vital signs: Vital Signs Temperature 98.0 F 10/30/24 11:33 Pulse Rate 111 H 10/30/24 11:33 Respiratory Rate 16 10/30/24 11:33 Blood Pressure 108/69 10/30/24 11:33 Pulse Oximetry 99 10/30/24 11:33 MDM - OB/Uterine Contractions Medical Decision Making Patient presents here with vaginal bleeding threatened miscarriage she is well-appearing here I did a bedside ultrasound consistent with dates roughly 7 to 8 weeks IUP was noted heart rate of 146 she stable for discharge follow-up with PCP return if worsening. Medical Records I reviewed the patient's medical records. No radiology studies performed this visit Discharge Plan Discharge Patient Disposition: Home Clinical Impression: Threatened miscarriage Condition: Stable Prescriptions: No Action norgestimate-ethinyl estradiol [Estarylla] 0.25-35 mg-mcg tablet 1 tab PO DAILY omeprazole magnesium [Prilosec OTC] 20 mg tablet,delayed release (DR/EC) 20 mg PO DAILY Qty: 30 0RF Methadone PO Rx Instructions: 30mg daily venlafaxine 75 mg capsule,extended release 24hr 75 mg PO .q am Qty: 14 0RF Rx Instructions: Take one capsule every morning with the 37.5 mg dose Discharge Orders: Discharge ED (Routine); Ordered 12/27/24 Ordered By: Fortunato Lambert Referrals: Kezia Galloway NP [Primary Care Provider] - Discharge Diet: Advance as tolerated Discharge Activity: Resume usual activity Patient Instructions: Threatened Miscarriage (ED) Coding Level of Care Code ED Signal Processing Engineer for Chava Li
[2024-10-30 12:38] VITALS: BP 103/65; PULSE 86; RESP 16; O2SAT 97
== END 2024-10-30 12:38 | disposition home or self-care (01) ==
PROVIDERS: Emergency Provider Emergency Medicine; PCP Nurse Practitioner Family
DX: O20.0 Threatened abortion (principal); Z3A.08 8 weeks gestation of pregnancy; F17.290 Nicotine dependence, other tobacco product, uncomplicated
CPT/HCPCS: 84702; 99283

== ENCOUNTER 2025-10-15 10:26 | Emergency (ER) | payer BC, MEDICAID, SELFPAY ==
--- NOTE | 2025-10-15 10:30 | ECG_ITS ---
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[id number] Requested By: Shanna Smith Order Number: [id number] Ángela MD: RAYNA OLVERA Measurements Intervals [place] Rate: 133 P: 72 ND: 138 QRS: -64 QRSD: 96 T: 59 QT: 299 QTc: 446 Interpretive Statements SINUS TACHYCARDIA INDETERMINATE AXIS INCOMPLETE RIGHT BUNDLE BRANCH BLOCK [90+ ms QRS DURATION, TERMINAL R IN V1/V2, 40+ ms S IN I/aVL/V4/V5/V6] LEFT ANTERIOR FASCICULAR BLOCK [QRS AXIS <= -45, QR IN I, RS IN II] POSSIBLE ANTERIOR MYOCARDIAL INFARCTION , PROBABLY OLD [30 ms Q WAVE IN V3/V4, OR R < 0.2 mV IN V4] Compared to ECG 07/19/2022 23:40:09 Indeterminate axis now present Left anterior fascicular block now present Myocardial infarct finding now present Electronically Signed On 10-15-2025 18:35:29 RETAIL SERVICE LEAD MERCHANDISER by RAYNA OLVERA [id number]
--- NOTE | 2025-10-15 10:30 | XRR_ITS ---
PROCEDURE INFORMATION: Exam: XR Chest Exam date and time: 10/15/2025 11:00 AM Age: 25 years old Clinical indication: Other: Syncope TECHNIQUE: Imaging protocol: Radiologic exam of the chest. Views: 1 view. COMPARISON: CR XR chest 1V 54310 12/23/2018 3:54 AM FINDINGS: Lungs: Increased density in the lateral aspect of both lung bases, [id number]-right. Pleural spaces: No pneumothorax. No significant size pleural effusion identified. Heart/Mediastinum: The cardiac silhouette is normal in size. Bones/joints: There is no acute osseous abnormality. XR/XR chest 1V portable [id number] IMPRESSION: Increased density in the lateral aspect of both lung bases, [id number]-right. Although this could be in part related to overlying soft tissues, underlying infectious/inflammatory airspace disease is suspected. If clinically warranted, a lateral view could be obtained to further evaluate. If no further imaging is obtained at this time, recommend follow up chest x-ray in 6-8 weeks to ensure resolution.
[2025-10-15 10:42] VITALS: BP 138/81; PULSE 135; RESP 17; TEMP 36.9; O2SAT 98; BMI 22.1
--- NOTE | 2025-10-15 11:03 | W.ED.SYNCOPE ---
HPI - Syncope General: Chief Complaint: Syncope Stated Complaint: passed out Time Seen by Provider: 10/15/25 10:57 Source: patient Mode of arrival: ambulatory Limitations: no limitations History of Present Illness: Patient is a 25-year-old female presents to ED today with a complaint of a syncopal episode. Patient states she was shopping at [employer] when she had an episode of lightheadedness and dizziness. She feels like this did improve on its own but later, while she was loading groceries into her car, it returned and she states she had a brief (5 to 10 seconds) episode of syncope. Upon arrival, she states she is asymptomatic other than she feels anxious and can feel that her heart rate is fast. She does arrive to the emergency department sinus tachycardia with a heart rate of 133 on her EKG. patient states she has had one previous syncopal episode in the past. Medications include methadone and control. She was recently prescribed venlafaxine for anxiety and had her first dose yesterday (was told by her [facility] methadone provider not to take the venlafaxine as it has a major interaction with the methadone so she will be stopping this). Patient does not complain of shortness of breath or difficulty breathing. No recent illness. MD complaint: loss of consciousness and felt faint Onset (ago): hour(s) -: second(s) Prodromal symptoms: palpitations Witnessed: No Injuries sustained associated with event: none Associated symptoms: Reports no associated symptoms and lightheadedness (resolved now); Deny abdominal pain, chest pain, fever(s), headache(s) or nausea Treatments prior to arrival: none Related Data Home Medications ?Medication ?Instructions ?Recorded ?Confirmed norgestimate 0.25 mg-ethinyl 1 tab PO DAILY 07/10/23 06/15/24 estradiol 0.035 mg tablet (Estarylla) Methadone PO 10/07/23 06/15/24 Previous Rx's ?Medication ?Instructions ?Recorded omeprazole magnesium 20 mg 20 mg PO DAILY #30 tabs 12/26/23 tablet,delayed release (Prilosec OTC) venlafaxine 75 mg capsule,extended 75 mg PO .q am #14 caps 03/02/24 release 24 hr Allergies Allergy/AdvReac Type Severity Reaction Status Date / Time albuterol Allergy unknown Verified 06/15/24 12:13 Review of Systems Const: Denies: fever(s), chills, body aches, fatigue or malaise Eyes: Denies: change in vision or blurry vision Card: Reports: palpitations (feels like her HR is fast), lightheadedness (resolved now) and syncope; Denies: chest pain, irregular heart rhythm, edema, swelling of feet/ankles, dyspnea on exertion, orthopnea, leg pain with exertion or acrocyanosis Resp: Denies: dyspnea, productive cough or pain on inspiration GI: Denies: abdominal pain, nausea, vomiting, heartburn or diarrhea : Denies: flank pain or dysuria Musc: Denies: neck pain, back pain, extremity pain, extremity swelling or joint pain Skin/Breast: Denies: rash Neuro: Denies: headache(s), numbness in extremities, weakness in extremities, sensory changes or difficulty walking PFS ED PFSH: Medical History Cannabis dependence, uncomplicated Generalized anxiety disorder Major depressive disorder, recurrent severe without psychotic features Family History Other Breast cancer Cervical cancer Colon cancer Heart disease Ovarian cancer Prostate cancer Thyroid disease Uterine cancer Denies family history of Diabetes Hyperlipidemia Bleeding disorder Hypertension Stroke Social History Smoking and tobacco/nicotine status: current some day tobacco/nicotine user (VAPE) Female Reproductive History: Date of last menstrual period: 09/27/25 Physical Exam Const: COMMON NORMALS: no acute distress, average body habitus, patient oriented x3, no limitations, healthy appearing, alert and well nourished GENERAL APPEARANCE: cooperative and anxious HENMT: COMMON NORMALS: normocephalic and atraumatic HEAD & SCALP: normal to inspection, normocephalic and atraumatic Eye: COMMON NORMALS: Equal, round and reactive pupils present and EOMs intact bilaterally GENERAL EYE: appearance normal, both eyes and all related structures and normal light reflex PUPIL: Yes Equal, round and reactive pupils present DIRECT OPHTHALMOSCOPY: Yes normal light reflex Neck/C-Spine: COMMON NORMALS: full ROM, no lymphadenopathy, supple and no meningeal signs Chest: COMMONS NORMALS: normal inspection of the chest Resp: COMMON NORMALS: normal respiratory effort and clear to auscultation bilaterally AUSCULTATION: clear to auscultation bilaterally Cardio: COMMON NORMALS: regular rhythm RATE: tachycardic RHYTHM: regular rhythm GI: COMMON NORMALS: Normal to inspection, nondistended, normoactive bowel sounds present, Soft to palpation, non-tender, No hepatosplenomegaly present and no masses PALPATION: Yes Soft to palpation and Yes No hepatosplenomegaly present : COMMON NORMALS: Yes no CVA tenderness BLADDER/KIDNEY EXAM: Yes no CVA tenderness Back/Pelvis: COMMON NORMALS: no CVA tenderness and thoracic and lumbar spine normal to inspection Extremity: COMMON NORMALS: normal to inspection, capillary refill normal, no clubbing, cyanosis or edema, no calf tenderness and no pedal edema GENERAL: Yes normal exam except as noted Neuro: MIGUEL ÁNGEL COMA SCALE: document GCS findings Miguel Ángel coma scale eye opening: Spontaneous Miguel Ángel coma scale verbal response: Orientated [place] coma scale motor response: Obey commands [place] coma scale total score: 15 COMMON NORMALS: patient oriented x3, CN's II-XII intact bilaterally, moves all extremities, no focal motor deficits, no sensory deficits noted and gait normal SENSORIUM/ORIENTATION: Yes alert MENINGEAL SIGNS: Yes no meningeal signs Skin: COMMON NORMALS: no rashes or lesions noted GENERAL SKIN EXAM: no rashes or lesions noted Course Vital Signs: Vital signs: Vital Signs Temperature 98.4 F 10/15/25 10:42 Pulse Rate 105 H 10/15/25 12:07 Respiratory Rate 17 10/15/25 10:42 Blood Pressure 115/79 10/15/25 12:07 Pulse Oximetry 99 10/15/25 12:07 MDM - Syncope Medical Decision Making Patient has been asymptomatic during her stay. She arrived tachycardic but this has resolved at time of discharge. During my discharge re-evaluation heart rate is now 95?105. Blood work here overall is unremarkable-mildly elevated anion gap which could be secondary to dehydration. She did have 4+ ketones in her urine. She was given a liter of fluids here. Blood work included a d-dimer for PE rule out as well as baseline troponin. Her EKG showing no abnormal tachyarrhythmias. CXR normal-radiologist had commented on densities to bilateral lateral lung aspects but this appears to be more soft tissue. She has no SOB/chest pain or URI like symptoms. At this time recommend she follow-up with her primary care provider which she is agreeable to. Return ED precautions discussed. Did perform interaction check with methadone and effexor and agree with stopping the effexor. She will speak to her primary care provider about something different to help with anxiety. Differential Diagnosis Likely syncope due to orthostatic hypotension, vasovagal syncope and dehydration Medical Records I reviewed the patient's medical records. Lab Data I reviewed the patient's lab results. 10/15/25 11:04 10/15/25 11:04 Radiology Impressions Chest X-Ray 10/15/25 10:30 IMPRESSION: Increased density in the lateral aspect of both lung bases, qsyr-[id number]-ftud-right. Although this could be in part related to overlying soft tissues, underlying infectious/inflammatory airspace disease is suspected. If clinically warranted, a lateral view could be obtained to further evaluate. If no further imaging is obtained at this time, recommend follow up chest x-ray in 6-8 weeks to ensure resolution. Laboratory Results WBC 11.47 10^3/uL (3.29-11.43) H 10/15/25 11:04 RBC 4.88 10^6/uL (3.85-5.65) 10/15/25 11:04 Hgb 15.00 g/dL (11.27-16.99) 10/15/25 11:04 Hct 42.9 % (36-47) 10/15/25 11:04 MCV 87.9 fl (85-98) 10/15/25 11:04 MCH 30.7 pg (27-33) 10/15/25 11:04 MCHC 35.0 g/dL (30-55) 10/15/25 11:04 RDW 12.1 % (12.1-15.1) 10/15/25 11:04 Plt Count 359 10^3/cmm (157-399) 10/15/25 11:04 MPV 9.3 fL (7.4-10.4) 10/15/25 11:04 Neut % (Auto) 88.0 % 10/15/25 11:04 Lymph % (Auto) 9.0 % 10/15/25 11:04 [place] % (Auto) 1.9 % 10/15/25 11:04 Eos % (Auto) 0.1 % 10/15/25 11:04 Baso % (Auto) 0.7 % 10/15/25 11:04 Neut # (Auto) 10.10 10^3/uL (1.8-7.7) H 10/15/25 11:04 Lymph # (Auto) 1.0 10^3/uL (0.8-4.8) 10/15/25 11:04 [place] # (Auto) 0.2 10^3/uL (0.2-0.9) 10/15/25 11:04 Eos # (Auto) 0.0 10^3/uL (0.0-0.8) 10/15/25 11:04 Baso # (Auto) 0.1 10^3/uL (0.0-0.1) 10/15/25 11:04 Nucleated RBC % (auto) 0 % 10/15/25 11:04 Nucleated RBCs # 0.0 /100WBC 10/15/25 11:04 D-Dimer 0.32 ug/mLFEU (0-0.59) 10/15/25 11:04 Sodium 138 mmol/L (136-145) 10/15/25 11:04 Potassium 3.7 mmol/L (3.5-5.1) 10/15/25 11:04 Chloride 100 mmol/L (98-107) 10/15/25 11:04 Carbon Dioxide 17 mmol/L (22-29) L 10/15/25 11:04 Anion Gap 24.7 (5-19) H 10/15/25 11:04 BUN 7 mg/dL (6-20) 10/15/25 11:04 Creatinine 0.7 mg/dL (0.5-0.9) 10/15/25 11:04 GFR Calculation 102.0 mL/min (90-130) 10/15/25 11:04 Glucose 73 mg/dL (65-115) 10/15/25 11:04 Calculated Osmolality 283 mOsm/kg (285-295) L 10/15/25 11:04 Calcium 9.6 mg/dL (8.5-10.5) 10/15/25 11:04 Total Bilirubin 0.6 mg/dL (0.15-1.2) 10/15/25 11:04 AST 16 U/L (0-32) 10/15/25 11:04 ALT 16 U/L (0-33) 10/15/25 11:04 Alkaline Phosphatase 70 U/L (35-105) 10/15/25 11:04 Troponin T Baseline < 6 ng/L (0-10) 10/15/25 11:04 Total Protein 8.1 g/dL (6.6-8.7) 10/15/25 11:04 Albumin 4.9 g/dL (3.5-5.2) 10/15/25 11:04 Globulin 3.2 g/dL (1.3-4.6) 10/15/25 11:04 HCG, Qual Negative (Negative) 10/15/25 11:04 Urine Color Yellow (Yellow) 10/15/25 10:59 Urine Appearance Clear (CLEAR) 10/15/25 10:59 Urine pH 5.0 (5-7) 10/15/25 10:59 Ur Specific [place] 1.017 (1.005-1.030) 10/15/25 10:59 Urine Protein Negative (Negative) 10/15/25 10:59 Urine Glucose (UA) Negative (Normal) 10/15/25 10:59 Urine Ketones 4+ (Negative) 10/15/25 10:59 Urine Blood Negative (Negative) 10/15/25 10:59 Urine Nitrate Negative (Negative) 10/15/25 10:59 Urine Bilirubin Negative (Negative) 10/15/25 10:59 Urine Urobilinogen 0.2 mg/dL (Negative) 10/15/25 10:59 Ur Leukocyte Esterase Negative (Negative) 10/15/25 10:59 Urine RBC 0-2 /hpf (0-2) 10/15/25 10:59 Urine WBC 0-5 /hpf (0-5) 10/15/25 10:59 Ur Squamous Epith Cells 0-5 /hpf (0-5) 10/15/25 10:59 Amorphous Sediment Not Reportable 10/15/25 10:59 Urine Bacteria None seen /hpf (NONE) 10/15/25 10:59 Hyaline Casts 1.21 /lpf 10/15/25 10:59 Urine Opiates Screen Negative ng/mL (Negative) 10/15/25 10:59 Ur Barbiturates Screen Negative ng/mL (Negative) 10/15/25 10:59 Ur Phencyclidine Scrn Negative ng/mL (Negative) 10/15/25 10:59 Ur Amphetamines Screen Negative ng/mL (Negative) 10/15/25 10:59 U Benzodiazepines Scrn Negative ng/mL (Negative) 10/15/25 10:59 Urine Cocaine Screen Negative ng/mL (Negative) 10/15/25 10:59 U Marijuana (THC) Screen Negative ng/mL (Negative) 10/15/25 10:59 All radiology interpretation(s) finalized by discharge Discharge Plan Discharge Patient Disposition: Home Clinical Impression: Syncope Qualifiers: Syncope type: unspecified Qualified Code(s): R55 - Syncope and collapse Condition: Stable Prescriptions: No Action norgestimate-ethinyl estradiol [Estarylla] 0.25-35 mg-mcg tablet 1 tab PO DAILY omeprazole magnesium [Prilosec OTC] 20 mg tablet,delayed release (DR/EC) 20 mg PO DAILY Qty: 30 0RF Methadone PO Rx Instructions: 30mg daily venlafaxine 75 mg capsule,extended release 24hr 75 mg PO .q am Qty: 14 0RF Rx Instructions: Take one capsule every morning with the 37.5 mg dose Discharge Orders: Discharge ED (Routine); Ordered 10/15/25 Ordered By: Shanna Smith Referrals: Kezia Galloway NP [Primary Care Provider, Nurse Practitioner] Patient Instructions: Syncope (DC), Near Syncope (ED), Lightheadedness (ED), Patient Portal & Malik Instructions Activity Restrictions/Additional Instructions: As we discussed, please follow-up with your primary care provider next week for reevaluation. You may return to the emergency department at anytime for any further concerns you may have for further episodes of syncope or significant lightheadedness/dizziness. Print Language: Gambian Coding Level of Care Code ED Scientific Programmer Analyst for Chava Li
[2025-10-15 11:09] LABS: Hematocrit 42.9 % (36-47); Hemoglobin 15.00 g/dL (11.27-16.99); Mean Corpuscular HGB Conc 35.0 g/dL (30-55); Mean Corpuscular Hemoglobin 30.7 pg (27-33); Mean Corpuscular Volume 87.9 fl (85-98); Nucleated Red Blood Cells % 0 %; Platelet Count 359 10^3/cmm (157-399); Red Blood Count 4.88 10^6/uL (3.85-5.65); White Blood Count 11.47 10^3/uL (3.29-11.43)
[2025-10-15 11:14] LABS: Glucose Urine UA Negative (Normal); Nitrate Urine Negative (Negative); Specific Gravity, Urine 1.017 (1.005-1.030)
[2025-10-15 11:19] LABS: Add Urine Microscopic? YES
[2025-10-15 11:21] LABS: PCP Screen Urine Negative (Negative)
[2025-10-15 11:22] VITALS: BP 103/68; BP 106/78; BP 113/75; PULSE 117; PULSE 128; PULSE 131
[2025-10-15 11:30] LABS: HCG, Serum Qual Negative (Negative)
[2025-10-15 11:33] LABS: Alanine Aminotransferase 16 U/L (0-33); Albumin Level 4.9 g/dL (3.5-5.2); Alkaline Phosphatase 70 U/L (35-105); Anion Gap 24.7 (5-19); Aspartate Amino Transferase 16 U/L (0-32); Blood Urea Nitrogen 7 mg/dL (6-20); Calcium 9.6 mg/dL (8.5-10.5); Carbon Dioxide 17 mmol/L (22-29); Chloride 100 mmol/L (98-107); Globulin 3.2 g/dL (1.3-4.6); Glucose 73 mg/dL (65-115); Osmolality Calculated 283 mOsm/kg (285-295); Potassium 3.7 mmol/L (3.5-5.1); Sodium 138 mmol/L (136-145); Total Protein 8.1 g/dL (6.6-8.7)
[2025-10-15 11:39] LABS: Troponin(5th) Baseline < 6 ng/L (0-10)
[2025-10-15 12:07] VITALS: BP 115/79; PULSE 105; O2SAT 99
== END 2025-10-15 12:24 | disposition home or self-care (01) ==
PROVIDERS: Emergency Provider Physician Assistant; PCP Nurse Practitioner Family
DX: R55 Syncope and collapse (principal); F17.290 Nicotine dependence, other tobacco product, uncomplicated
CPT/HCPCS: 71045; 80053; 80306; 81001; 84484; 84703; 85025; 85378; 93005; 99285; J7030